=== PATIENT | male | born 1940 | race Caucasian/White ===

== ENCOUNTER 2018-03-03 13:21 | Inpatient (IN) | payer MEDICARE, OTHER ==
[~2018-03-03] VITALS: Ht 188 cm; Wt 110.0 kg
[2018-03-03] MEDS ORDERED: SODIUM CHLORIDE 0.9% 1L BAG IV* STA (13:28)
[2018-03-03] MEDS ORDERED: CEFTRIAXONE 1 GM/50 ML (PMX) 50 ML IVPB ONE (13:30)
[2018-03-03 13:32] VITALS: Ht 188 cm; Wt 110.0 kg
--- NOTE | 2018-03-03 13:52 | ERD ---
ER Documentation Chief Complaint Chief Complaint BIB RA FOR EVAL OF RT LEG REDNESS X 2 DAYS WITH FEVER HPI 77-year-old man complains of 2 days of right lower leg swelling redness and pain. He also complains of fever today, EMS noted a 102.4 F temperature prior to transfer here. Patient denies recent antibiotic use, no recent trauma, no chest pain or shortness of breath, no URI symptoms, no vomiting or diarrhea. ROS All systems reviewed and are negative except as per history of present illness. Medications Home Meds Reported Medications Metformin Hcl* (Metformin Hcl* ER) 500 Mg Tab.sr.24h, 500 MG PO DAILY, #30 TAB 03/03/18 Apixaban* (Eliquis*) Unknown Strength Tablet, PO BID, TAB 03/03/18 Allergies Allergies: Coded Allergies: codeine (Verified Allergy, Unknown, 03/03/18) PMhx/Soc Atrial fibrillation, hypertension FmHx Family History: No diabetes Physical Exam Vitals Vital Signs Date Temp Pulse Resp B/P (MAP) Pulse Ox O2 O2 Flow FiO2 Time Delivery Rate 03/03/18 100.7 93 20 114/63 94 Nasal 14:47 (80) Cannula 03/03/18 102.9 14:19 03/03/18 Nasal 3 13:40 Cannula 03/03/18 102.3 103 16 119/59 99 13:32 (79) Physical Exam Const: No acute distress, febrile Head: Atraumatic Eyes: Normal Conjunctiva ENT: Normal External Ears, Nose and Mouth. Neck: Full range of motion. No meningismus. Resp: Clear to auscultation bilaterally Cardio: Tachycardic and regular Abd: Soft, non tender, non distended. Normal bowel sounds Skin: No petechiae or rashes Back: No midline or flank tenderness Ext: No cyanosis, 3+ pitting edema in the right lower extremity with erythema to the right lower leg and mild tenderness to touch. Neur: Awake and alert x3, no focal deficits or facial asymmetry, gait normal Psych: Normal Mood and Affect Result Diagram: 03/03/18 1349 03/03/18 1349 Results 24 hrs Laboratory Tests Test 03/03/18 13:49 White Blood Count 12.1 10^3/ul Red Blood Count 4.12 10^6/ul Hemoglobin 10.8 g/dl Hematocrit 34.0 % Mean Corpuscular Volume 82.5 fl Mean Corpuscular Hemoglobin 26.2 pg Mean Corpuscular Hemoglobin Concent 31.8 g/dl Red Cell Distribution Width 16.7 % Platelet Count 159 10^3/UL Mean Platelet Volume 11.6 fl Immature Granulocytes % 1.100 % Neutrophils % 90.7 % Lymphocytes % 2.3 % Monocytes % 5.6 % Eosinophils % 0.2 % Basophils % 0.1 % Nucleated Red Blood Cells % 0.0 /100WBC Immature Granulocytes # 0.130 10^3/ul Neutrophils # 11.0 10^3/ul Lymphocytes # 0.3 10^3/ul Monocytes # 0.7 10^3/ul Eosinophils # 0.0 10^3/ul Basophils # 0.0 10^3/ul Nucleated Red Blood Cells # 0.0 10^3/ul Prothrombin Time 19.3 Sec Prothrombin Time Ratio 1.5 INR International Normalized Ratio 1.59 Activated Partial Thromboplast Time 62.1 Sec Sodium Level 138 mmol/L Potassium Level 3.7 mmol/L Chloride Level 99 mmol/L Carbon Dioxide Level 23 mmol/L Anion Gap 16 Blood Urea Nitrogen 23 mg/dl Creatinine 0.80 mg/dl Est Glomerular Filtrat Rate mL/min mL/min Glucose Level 167 mg/dl POC Venous Lactate 3.8 mmol/L Calcium Level 8.8 mg/dl Total Bilirubin 0.8 mg/dl Direct Bilirubin 0.00 mg/dl Indirect Bilirubin 0.8 mg/dl Aspartate Amino Transf (AST/SGOT) 19 IU/L Alanine Aminotransferase (ALT/SGPT) 16 IU/L Alkaline Phosphatase 92 IU/L Troponin I < 0.012 ng/ml Total Protein 6.9 g/dl Albumin 3.7 g/dl Globulin 3.20 g/dl Albumin/Globulin Ratio 1.15 Lipase 23 U/L Current Medications Medications Dose Sig/Scott Start Time Status Last (Trade) Ordered Route PRN Stop Time Admin Dose Reason Admin Sodium 2,000 ml BOLUS OVER 2 03/03/18 DC 03/03/18 Chloride HOURS STAT 13:28 14:10 (NS) IV* 03/03/18 13:30 Ceftriaxone 50 ml @ ONCE ONCE 03/03/18 DC 03/03/18 Sodium 100 mls/hr IVPB 13:30 14:10 03/03/18 13:59 Ibuprofen 600 mg ONCE ONCE 03/03/18 DC 03/03/18 (Motrin) PO 13:30 14:19 03/03/18 13:31 Procedures/MDM IV line was established patient was placed on laboratory monitor rhythm strip revealed a sinus tachycardia at 110 bpm with upright P and T waves. Patient was febrile. Blood and urine cultures have been ordered results are pending I will follow-up. EKG performed, read by me revealed a atrial fibrillation with rapid ventricular rate at 104 bpm, left axis deviation, right ventricular conduction delay QRS duration 104 ms, no concerning ST elevations or depressions noted Chest X-ray 1V Interpreted by me: Soft Tissue: No acute abnormalities Bones: No acute abnormalities Mediastinum/Cardiac Silhouette/Lungs: No acute abnormalities Color Doppler ultrasound of the right lower extremity was performed, all veins compressible, no DVT noted. I administered 2 L normal saline IV, ibuprofen 600 mg p.o., and ceftriaxone 1 g IV for right lower extremity cellulitis. CBC and electrolytes are normal, liver function tests normal, troponin negative, lactic acid elevated at 3.8 Patient's infectious symptoms have not stabilized and the patient is at risk of rapid decompensation. The patient will be admitted for careful hydration, antibiotic therapy, and infectious source control. SEVERE SEPSIS CRITERIA: Infectious source: Right lower extremity cellulitis End organ damage indicated by: No SEPSIS MANAGEMENT Time of recognition of sepsis: Upon arrival. Time of recognition of severe sepsis: No severe sepsis at this time. Time of recognition of septic shock: No septic shock at this time. 3 HOUR BUNDLE Blood cultures x 2 before broad-spectrum antibiotics: Yes 30 ml/kg NS bolus not completed because patient has peripheral edema and I am worried about fluid overload Initial lactate 3.8 Repeat lactate pending SEPTIC SHOCK ASSESSMENT: No lactic acid > 4.0 No persistent hypotension (SBP < 90 or 40 mmHg drop, MAP < 65) despite 30 mL/kg IV fluid bolus VOLUME REASSESSMENT FOR SEPTIC SHOCK: Reevaluation Time: 1500 Temp 99 F BP 140/80, HR 80, RR 16, Pox 100% Heart regular rate & rhythm Lungs no crackles Skin warm & dry Cap Refill less than 2 seconds Peripheral pulses radially present PERSISTENT HYPOTENSION TREATMENT: Comfort care no Central line not Required Vasopressor started not required I considered further perfusion assessment with CVP measurement, SCVO2, bedside ultrasound volume assessment, passive leg raise, trial of further fluid bolus. And proceeded with 30 ml/kg fluid bolus of NSS, broad spectrum antibiotics, and admission. CRITICAL CARE: Critical care time 35 minutes, this was time separate from other billable procedures. Emergent fluid management while maintaining close respiratory support. Provision of immediate and broad-spectrum antibiotic therapy. Simultaneous assessment for possible sources in order to direct targeted therapy. Consideration for invasive and chemical support to prevent cardiopulmonary collapse. Critical care time is independent of procedures performed. Accepting Care Team: Current data and ongoing care discussed. Time: Time of admission Primary Provider: Hospitalist Consulting: Infectious disease Outstanding Data: none Departure Diagnosis: Primary Impression: Sepsis Sepsis type: sepsis due to unspecified organism Qualified Codes: A41.9 - Sepsis, unspecified organism Additional Impression: Cellulitis of right lower extremity Condition: AURORA Moreno MD Mar 03, 2018 13:52
[2018-03-03] MEDS: IBUPROFEN 600 MG TAB PO ONE ×2 (14:11→14:19)
[2018-03-03] MEDS ORDERED: APIX2.5T PO (14:22)
[2018-03-03] MEDS ORDERED: METF500T3 PO (14:22)
[2018-03-03] MEDS ORDERED: HYDROCODONE/APAP (5/325) TAB PO PRN (16:00)
[2018-03-03] MEDS ORDERED: IBUPROFEN 600 MG TAB PO PRN (16:00)
[2018-03-03] MEDS ORDERED: VANCOMYCIN IV PER PHARMACY XX SCH (16:00)
[2018-03-03] MEDS ORDERED: ONDANSETRON 4 MG INJ IV PRN (16:00)
[2018-03-03] MEDS ORDERED: NACL 0.9% 3 ML SYG IV SCH (16:00)
[2018-03-03] MEDS ORDERED: IOHEXOL 300MG/ML 150 ML BTL ONE (16:05)
[2018-03-03] MEDS ORDERED: SOD CHLORIDE 0.9% 100 ML ONE (16:05)
--- NOTE | 2018-03-03 16:06 | HP ---
Date/Time of Note Date/Time of Note DATE: 03/03/18 TIME: 15:52 Assessment/Plan VTE Prophylaxis Pharmacological prophylaxis: other (eliquis) Lines/Catheters IV Catheter Type (from Nrs): Saline Lock Assessment/Plan Assessment/Plan 73 yo man history of NIDDM presents with RLE cellulitis #Severe sepsis #RLE cellulitis - Will get CT leg to r/o NSTI - Duplex negative for DVT. - Ceftriaxone, vanco IV for now - Blood cultures sent - Consult podiatry to posterior foot ulcers. Likely will not need debridement, but just to check. - Ibuprofen, norco prn pain #NIDDM - Insulin sliding scale - Hold home metformin #A fib, chronic - Cont home eliquis - Currently not on anything for rate control; but rate is below 110s even while septic so will hold off. DVT: eliquis GI: None Result Diagram: 03/03/18 1349 03/03/18 1349 HPI/ROS Admit Date/Time Admit Date/Time 03/03/2018 Hx of Present Illness Mr. Padilla is a pleasant 77 yo man with NIDDM who presents with RLE pain and swelling. Symptoms started Thursday morning (2 days [employer]) with subjective fever, headache, and R ankle pain and swelling. He does have two small ulcers on the dorsum of his foot but is not sure when these developed. He developed anorexia, nausea, and had a few episodes of retching but no vomiting. Spent most of Thursday sleeping. The next day symptoms progressively worsened. He took some old oxycodone which did not relieve the pain. He then came in to the ED. In the ED he was febrile to 102.3, tachy to 103, requiring 3L NC. WBC 12.1, lactate 3.8. Admit to med/surg for cellulitis with sepsis. ROS Denies fatigue, weight loss, diaphoresis, vision changes, dysphagia, sore throat, chest pain/pressure/palpitations, cough, dyspnea, orthopnea, abdominal pain, diarrhea, constipation, dysuria, hematuria, urinary frequency. PMH/Family/Social Past Medical History A fib (July 2017) on Eliquis, no rate control NIDDM on metformin History of L shoulder fracture repaired nonoperative History of spine fracture Coded Allergies: codeine (Verified Allergy, Unknown, 03/03/18) Past Surgical History Denies Social History Alcohol Use: occasionally Smoking Status: Former smoker (quit 1984) Drug Use: none Exam/Review of Systems Vital Signs Vitals Vital Signs Date Temp Pulse Resp B/P (MAP) Pulse Ox O2 O2 Flow FiO2 Time Delivery Rate 03/03/18 100.7 93 20 114/63 94 Nasal 14:47 (80) Cannula 03/03/18 3 13:40 Exam Exam Gen: Well appearing elderly man in some discomfort Eyes: PERRL, no icterus HEENT: Clear oropharynx, moist mucous membranes Neck: No lymphadenopathy Card: Tachy, irregularly irregular Pulm: Clear to auscultation bilaterally. Abd: Soft, nontender, nondistended. Ext: RLE 2+ tense edema, patchy erythema, tenderness especially of posterior compartment Skin: Superficial petechiae on RLE. Also two clean-based ulcers on posterior foot. NICOLE BLISS MD Mar 03, 2018 16:04
[2018-03-03] MEDS ORDERED: GLUCAGON 1 MG INJ IM PRN (16:30)
[2018-03-03] MEDS ORDERED: GLUCOSE GEL 15 GRAM TUBE BUCCAL PRN (16:30)
[2018-03-03] MEDS ORDERED: DEXTROSE 50% 50 ML SYRINGE IV PRN ×2 (16:30)
[2018-03-03] MEDS ORDERED: GLUCOSE GEL 15 GRAM TUBE PO PRN ×2 (16:30)
--- NOTE | 2018-03-03 16:41 | NUR ---
Vancomycin per Rx 77 year old male 6' 2" 110 kg Allergy: codeine CC: Cellulitis, sepsis Other antibiotics: Rocephin WBC 12.1 BUN/Scr 23/0.8 A/P: Vancomycin 2 grams IVPB x1 loading dose followed by Vancomycin 1 gram IVPB q12h. Pharmacy to follow.
[2018-03-03] MEDS ORDERED: VANCOMYCIN 2 GM in SOD CHLORIDE 0.9% 500 ML IVPB SCH (17:00)
--- NOTE | 2018-03-03 17:54 | NUR ---
Pt received from ED in stable condition, no acute distress or pain noted, skin check performed, pictures taken,will endorse POC to presales consultant RN
[2018-03-03 18:17] VITALS: BP 95/54; PULSE 97; RESP 18
[2018-03-03 19:53] VITALS: BP 106/61; PULSE 98; RESP 16
--- NOTE | 2018-03-03 20:22 | CONS ---
Date/Time of Note Date/Time of Note DATE: 03/03/18 TIME: 20:17 Assessment/Plan Assessment/Plan Assessment/Plan 1) RLE diabetic foot ulcer 2) RLE cellulitis 3) Edema 4) Leukocytosis 5) DM2 with peripheral neuropathy 6) Onychomycosis 7) callus Plan: Patient was consented for right lower extremity debridement of skin and subcutaneous tissue of the of lower extremity ulcer sites. Less than 20cm2 of area was debrided using scalpel blade. Copious saline irrigation used at wound sites. Wound cultures were obtained, fibrotic tissue and biofilm was removed from the wound sites. Right hallux callus was pared no open wound sites appreciated. CT-scan reviewed. Arterial non-invasive studies ordered. Continue with IV abx per recommendations. Medical decisions, treatment, and plan coordinated with Dr. Weinberg. Result Diagram: 03/03/18 1349 03/03/18 1349 Results 24hrs Laboratory Tests Test 03/03/18 13:49 03/03/18 15:43 03/03/18 18:22 White Blood Count 12.1 H Red Blood Count 4.12 L Hemoglobin 10.8 L Hematocrit 34.0 L Mean Corpuscular Volume 82.5 Mean Corpuscular Hemoglobin 26.2 L Mean Corpuscular 31.8 L Hemoglobin Concent Red Cell Distribution Width 16.7 H Platelet Count 159 Mean Platelet Volume 11.6 H Immature Granulocytes % 1.100 H Neutrophils % 90.7 H Lymphocytes % 2.3 L Monocytes % 5.6 Eosinophils % 0.2 Basophils % 0.1 Nucleated Red Blood Cells % 0.0 Immature Granulocytes # 0.130 H Neutrophils # 11.0 H Lymphocytes # 0.3 L Monocytes # 0.7 Eosinophils # 0.0 Basophils # 0.0 Nucleated Red Blood Cells # 0.0 Prothrombin Time 19.3 H Prothrombin Time Ratio 1.5 INR International 1.59 Normalized Ratio Activated Partial Thromboplast 62.1 H Time Sodium Level 138 Potassium Level 3.7 Chloride Level 99 Carbon Dioxide Level 23 Anion Gap 16 H Blood Urea Nitrogen 23 H Creatinine 0.80 Est Glomerular Filtrat Rate mL/min Glucose Level 167 POC Venous Lactate 3.8 *H 1.9 Calcium Level 8.8 Total Bilirubin 0.8 Direct Bilirubin 0.00 Indirect Bilirubin 0.8 Aspartate Amino 19 Transf (AST/SGOT) Alanine 16 Aminotransferase (ALT/SGPT) Alkaline Phosphatase 92 Troponin I < 0.012 Total Protein 6.9 Albumin 3.7 Globulin 3.20 Albumin/Globulin Ratio 1.15 Lipase 23 Lactic Acid Level 2.3 *H Consultation Date/Type/Reason Admit Date/Time 03/03/2018 Hx of Present Illness 77 y/o diabetic male with hx of a-fib presents to the floor with right lower extremity cellulitis. Patient states that a couple days ago he was experiencing fatigue, fevers, and noted increased redness/swelling to the right lower extremity. Patient stated he had decreased appetite as well. Patient also relates he attempted to cut his own toe nails, accidently cut his own skin and had bled significantly. He also relates that he was wearing tight socks and possible that his right 5th toenail got caught when trying to remove it. Patient states that when standing still the pain to his right lower extremity is worsened and feels like dull throbbing ache. Pain does not radiate towards the proximal aspect of his leg. ROS: negative except HPI Past Medical History A fib (July 2017) on Eliquis, no rate control NIDDM on metformin History of L shoulder fracture repaired nonoperative History of spine fracture Medications Current Medications IV Flush (NS 3 ml) 3 ml PER PROTOCOL IV ; Start 03/03/18 at 16:00 Ondansetron HCl (Zofran Inj) 4 mg Q6H PRN IV NAUSEA AND/OR VOMITING; Start 03/03/18 at 16:00 Ibuprofen (Motrin) 600 mg Q6H PRN PO PAIN; Start 03/03/18 at 16:00 Acetaminophen/ Hydrocodone Bitart ([place] (5/325)) 1 tab Q6H PRN PO BREAKTHROUGH PAIN; Start 03/03/18 at 16:00 Enoxaparin Sodium (Lovenox) 40 mg DAILY SC ; Start 03/04/18 at 09:00 Ceftriaxone Sodium 50 ml @ 100 mls/hr Q24H IVPB ; Start 03/04/18 at 13:00 Vancomycin HCl (Vanco Iv Per Pharmacy) VANCOMYCIN PER PHARMACY PER PROTOCOL XX ; Start 03/03/18 at 16:00 Diagnostic Test (Pha) (Accu-Chek) 1 ea 02 XX ; Start 03/04/18 at 02:00 Insulin Aspart (Novolog Insulin Pen) NOVOLOG *MODERATE* ALGORITHM WITH MEALS BEDTIME SC ; Start 03/03/18 at 21:00 Miscellaneous Information 1 ea NOTE XX ; Start 03/03/18 at 16:30 Glucose (Glutose) 15 gm Q15M PRN PO DECREASED GLUCOSE; Start 03/03/18 at 16:30 Glucose (Glutose) 22.5 gm Q15M PRN PO DECREASED GLUCOSE; Start 03/03/18 at 16:30 Dextrose (D50w Syringe) 25 ml Q15M PRN IV DECREASED GLUCOSE; Start 03/03/18 at 16:30 Dextrose (D50w Syringe) 50 ml Q15M PRN IV DECREASED GLUCOSE; Start 03/03/18 at 16:30 Glucagon (Glucagen) 1 mg Q15M PRN IM DECREASED GLUCOSE; Start 03/03/18 at 16:30 Glucose (Glutose) 15 gm Q15M PRN BUCCAL DECREASED GLUCOSE; Start 03/03/18 at 16:30 Vancomycin HCl 2 gm/Sodium Chloride 500 ml @ 125 mls/hr ONCE IVPB Last administered on 03/03/18at 16:45; Admin Dose 125 MLS/HR; Start 03/03/18 at 17:00; Stop 03/03/18 at 20:59 Vancomycin HCl 250 ml @ 125 mls/hr Q12H IVPB ; Start 03/04/18 at 06:00 Sodium Hypochlorite (Dakin'S (Dilute 140)) 1 applic DAILY IRR ; Start 03/04/18 at 09:00 Allergies: Coded Allergies: codeine (Verified Allergy, Unknown, 03/03/18) Past Surgical History eye surgery lasik Family History Significant Family History: no pertinent family hx Social History Alcohol Use: occasionally Smoking Status: Former smoker (quit 1984) Drug Use: none Exam/Review of Systems Vital Signs Vitals Vital Signs Date Temp Pulse Resp B/P (MAP) Pulse Ox O2 O2 Flow FiO2 Time Delivery Rate 03/03/18 98.8 98 16 106/61 95 19:53 (76) 03/03/18 Room Air 18:17 03/03/18 3.0 18:01 Exam Unable to palpable pedal pulses popliteal pulses palpable Diffuse erythema to tibial region of right lower extremity 2+ pitting edema right lower extremity mycotic toe nails appreciated Right 5th digit with 0.3 x 0.3 x 0.2cm ulceration site with purulence appreciated. There is a loosely adhered 5th digit toe nail. HPK lesion to right distal hallux with no underlying wound Dorsal right foot partial thickness ulcer site 0.2 x 0.2 x 0.1 medial and lateral. Granular in nature, no purulence expressed, no probing to bone Absent protective sensations to the feet Muscle strength is 5/5 in all compartments of the foot. CT lower extremity 1. Circumferential subcutaneous soft tissue edema predominately noted distal to the mid tibial diaphysis and focal areas of soft tissue inflammation along the anterior and anterior medial aspect of the distal tibia and lateral aspect of the distal fibula. There is no deep soft tissue swelling or soft tissue abscess appreciated. 2. No CT evidence of bone destructive process or osteomyelitis. Medications Medications Current Medications IV Flush (NS 3 ml) 3 ml PER PROTOCOL IV ; Start 03/03/18 at 16:00 Ondansetron HCl (Zofran Inj) 4 mg Q6H PRN IV NAUSEA AND/OR VOMITING; Start 03/03/18 at 16:00 Ibuprofen (Motrin) 600 mg Q6H PRN PO PAIN; Start 03/03/18 at 16:00 Acetaminophen/ Hydrocodone Bitart ([place] (5/325)) 1 tab Q6H PRN PO BREAKTHROUGH PAIN; Start 03/03/18 at 16:00 Enoxaparin Sodium (Lovenox) 40 mg DAILY SC ; Start 03/04/18 at 09:00 Ceftriaxone Sodium 50 ml @ 100 mls/hr Q24H IVPB ; Start 03/04/18 at 13:00 Vancomycin HCl (Vanco Iv Per Pharmacy) VANCOMYCIN PER PHARMACY PER PROTOCOL XX ; Start 03/03/18 at 16:00 Diagnostic Test (Pha) (Accu-Chek) 1 ea 02 XX ; Start 03/04/18 at 02:00 Insulin Aspart (Novolog Insulin Pen) NOVOLOG *MODERATE* ALGORITHM WITH MEALS BEDTIME SC ; Start 03/03/18 at 21:00 Miscellaneous Information 1 ea NOTE XX ; Start 03/03/18 at 16:30 Glucose (Glutose) 15 gm Q15M PRN PO DECREASED GLUCOSE; Start 03/03/18 at 16:30 Glucose (Glutose) 22.5 gm Q15M PRN PO DECREASED GLUCOSE; Start 03/03/18 at 16:30 Dextrose (D50w Syringe) 25 ml Q15M PRN IV DECREASED GLUCOSE; Start 03/03/18 at 16:30 Dextrose (D50w Syringe) 50 ml Q15M PRN IV DECREASED GLUCOSE; Start 03/03/18 at 16:30 Glucagon (Glucagen) 1 mg Q15M PRN IM DECREASED GLUCOSE; Start 03/03/18 at 16:30 Glucose (Glutose) 15 gm Q15M PRN BUCCAL DECREASED GLUCOSE; Start 03/03/18 at 16:30 Vancomycin HCl 2 gm/Sodium Chloride 500 ml @ 125 mls/hr ONCE IVPB Last administered on 03/03/18at 16:45; Admin Dose 125 MLS/HR; Start 03/03/18 at 17:00; Stop 03/03/18 at 20:59 Vancomycin HCl 250 ml @ 125 mls/hr Q12H IVPB ; Start 03/04/18 at 06:00 Sodium Hypochlorite (Dakin'S (Dilute )) 1 applic DAILY IRR ; Start 03/04/18 at 09:00 IGNACIO RIVERA DPM Mar 03, 2018 20:22
[2018-03-03] MEDS: INSULIN ASPART [NOVOLOG] 3 ML PEN SC SCH (21:00)
--- NOTE | 2018-03-04 00:21 | NUR ---
Late entry 2030: Seen by Dr. Miles and did right lower extremity debridement at bedside, patient signed consent. Noted right lower extremity with fadia wrap bandage applied, patient denies any unbearable discomfort/pain. Right lower extremity with redness and swelling noted, right foot anterior aspect with open wound noted prior to debridement. Right leg elevated.
[2018-03-04 01:42] VITALS: BP 114/65; PULSE 100; RESP 18
[2018-03-04] MEDS: ACCU-CHEK XX SCH (02:00)
[2018-03-04] MEDS: VANCOMYCIN 1 GM 250 ML IVPB SCH ×2 (05:45→18:08)
--- NOTE | 2018-03-04 06:48 | NUR ---
No event overnight. Right Lower extremity dressing intact/dry with small size of blood stain can be noted in the forefoot area of the dressing. Denies any unbearable discomfort. Continue on IV antibiotic medication as ordered infusing well. Fall risks precaution observed, all needs attended to promptly. Ira signs stable.
[2018-03-04 07:39] VITALS: BP 112/57; PULSE 103; RESP 16
[2018-03-04] MEDS: INSULIN ASPART [NOVOLOG] 3 ML PEN SC SCH ×4 (09:27→21:00)
[2018-03-04] MEDS: ENOXAPARIN 40 MG/0.4 ML SYG SC SCH (09:28)
[2018-03-04] MEDS: SODIUM HYPOCHLORITE (1/40) 1 APPLIC BTL IRR SCH (09:38)
--- NOTE | 2018-03-04 12:23 | PN ---
Date/Time of Note Date/Time of Note DATE: 03/04/18 TIME: 12:21 Assessment/Plan VTE Prophylaxis Risk score (from Nsg)>0 risk: 5 SCD applied (from Nsg): Yes Pharmacological prophylaxis: LMWH Lines/Catheters IV Catheter Type (from Nrsg): [place] Assessment/Plan Assessment/Plan 73 yo man history of NIDDM presents with RLE cellulitis #Severe sepsis #RLE cellulitis - CT leg negative for deep edema or subQ gas. - Duplex negative for DVT. - Ceftriaxone, vanco IV for now - Blood cultures sent - Podiatry debrided on 03/03, will followup wound cultures. - Ibuprofen, norco prn pain #NIDDM - Insulin sliding scale - Hold home metformin #A fib, chronic - Cont home eliquis - Currently not on anything for rate control; but rate is below 110s even while septic so will hold off. DVT: eliquis GI: None Result Diagram: 03/04/18 0446 03/04/18 0446 Results 24hrs Laboratory Tests Test 03/03/18 13:49 03/03/18 15:43 03/03/18 18:22 03/03/18 21:17 White Blood 12.1 H Count Red Blood Count 4.12 L Hemoglobin 10.8 L Hematocrit 34.0 L Mean Corpuscular 82.5 Volume Mean Corpuscular 26.2 L Hemoglobin Mean Corpuscular 31.8 L Hemoglobin Dulce nt Red Cell 16.7 H Distribution Width Platelet Count 159 Mean Platelet 11.6 H Volume Immature 1.100 H Granulocytes % Neutrophils % 90.7 H Lymphocytes % 2.3 L Monocytes % 5.6 Eosinophils % 0.2 Basophils % 0.1 Nucleated Red 0.0 Blood Cells % Immature 0.130 H Granulocytes # Neutrophils # 11.0 H Lymphocytes # 0.3 L Monocytes # 0.7 Eosinophils # 0.0 Basophils # 0.0 Nucleated Red 0.0 Blood Cells # Prothrombin Time 19.3 H Prothrombin Time 1.5 Ratio INR 1.59 International Normalized Ratio Activated 62.1 H Partial Thrombop last Time Sodium Level 138 Potassium Level 3.7 Chloride Level 99 Carbon Dioxide 23 Level Anion Gap 16 H Blood Urea 23 H Nitrogen Creatinine 0.80 Est Glomerular Filtrat Rate mL/min Glucose Level 167 POC Venous 3.8 *H 1.9 Lactate Calcium Level 8.8 Total Bilirubin 0.8 Direct Bilirubin 0.00 Indirect 0.8 Bilirubin Aspartate Amino 19 Transf (AST/SGOT ) Alanine 16 Aminotransferase (ALT/SGPT) Alkaline 92 Phosphatase Troponin I < 0.012 Total Protein 6.9 Albumin 3.7 Globulin 3.20 Albumin/Globulin 1.15 Ratio Lipase 23 Lactic Acid 2.3 *H Level Bedside Glucose 174 Test 03/04/18 00:31 03/04/18 04:46 03/04/18 08:21 03/04/18 09:25 Lactic Acid 1.6 Level White Blood 11.4 H Count Red Blood Count 3.75 L Hemoglobin 9.7 L Hematocrit 31.0 L Mean Corpuscular 82.7 Volume Mean Corpuscular 25.9 L Hemoglobin Mean Corpuscular 31.3 L Hemoglobin Dulce nt Red Cell 16.8 H Distribution Width Platelet Count 131 L Mean Platelet 11.4 H Volume Immature 1.000 H Granulocytes % Neutrophils % 88.9 H Lymphocytes % 2.6 L Monocytes % 7.1 Eosinophils % 0.3 Basophils % 0.1 Nucleated Red 0.0 Blood Cells % Immature 0.110 H Granulocytes # Neutrophils # 10.1 H Lymphocytes # 0.3 L Monocytes # 0.8 Eosinophils # 0.0 Basophils # 0.0 Nucleated Red 0.0 Blood Cells # Sodium Level 139 Potassium Level 3.5 Chloride Level 101 Carbon Dioxide 25 Level Anion Gap 13 Blood Urea 20 Nitrogen Creatinine 0.68 Est Glomerular Filtrat Rate mL/min Glucose Level 168 Hemoglobin A1c 6.9 H Calcium Level 8.5 Phosphorus Level 3.3 Magnesium Level 2.0 Total Bilirubin 0.6 Direct Bilirubin 0.00 Indirect 0.6 Bilirubin Aspartate Amino 15 Transf (AST/SGOT ) Alanine 16 Aminotransferase (ALT/SGPT) Alkaline 79 Phosphatase Total Protein 6.1 Albumin 3.3 Globulin 2.80 Albumin/Globulin 1.17 Ratio Triglycerides 72 Level Cholesterol 93 L Level LDL Cholesterol, 51 Calculated HDL Cholesterol 28 L Cholesterol/HDL 3.3 Ratio Thyroid 1.900 Stimulating Hormone (TSH) Bedside Glucose 184 158 Subjective 24 Hr Interval Summary Free Text/Dictation No acute overnight events. Patient reports fatigue and anorexia. Got debrided by Dr. Miles last night. Exam/Review of Systems Vital Signs Vitals Vital Signs Date Temp Pulse Resp B/P (MAP) Pulse Ox O2 O2 Flow FiO2 Time Delivery Rate 03/04/18 98.6 103 16 112/57 95 07:39 (75) 03/03/18 Room Air 18:17 03/03/18 3.0 18:01 Intake and Output 03/03/18 03/03/18 03/04/18 1515:00 23:00 07:00 OutputOutput Total 1000 ml BalanceBalance -1000 ml Exam Gen: Well appearing elderly man in no acute distress Eyes: PERRL, no icterus HEENT: Clear oropharynx, moist mucous membranes Neck: No lymphadenopathy Card: irregularly irregular Pulm: Clear to auscultation bilaterally. Abd: Soft, nontender, nondistended. Ext: RLE 2+ tense edema, patchy erythema, tenderness especially of posterior compartment. Limb is bandaged. Skin: Superficial petechiae on RLE. Medications Medications Current Medications IV Flush (NS 3 ml) 3 ml PER PROTOCOL IV ; Start 03/03/18 at 16:00 Ondansetron HCl (Zofran Inj) 4 mg Q6H PRN IV NAUSEA AND/OR VOMITING; Start 03/03/18 at 16:00 Ibuprofen (Motrin) 600 mg Q6H PRN PO PAIN; Start 03/03/18 at 16:00 Acetaminophen/ Hydrocodone Bitart ([place] (5/325)) 1 tab Q6H PRN PO BREAKTHROUGH PAIN; Start 03/03/18 at 16:00 Enoxaparin Sodium (Lovenox) 40 mg DAILY SC Last administered on 03/04/18at 09:28; Admin Dose 40 MG; Start 03/04/18 at 09:00 Ceftriaxone Sodium 50 ml @ 100 mls/hr Q24H IVPB ; Start 03/04/18 at 13:00 Vancomycin HCl (Vanco Iv Per Pharmacy) VANCOMYCIN PER PHARMACY PER PROTOCOL XX ; Start 03/03/18 at 16:00 Diagnostic Test (Pha) (Accu-Chek) 1 ea 02 XX ; Start 03/04/18 at 02:00 Insulin Aspart (Novolog Insulin Pen) NOVOLOG *MODERATE* ALGORITHM WITH MEALS BEDTIME SC Last administered on 03/04/18at 09:27; Admin Dose 2 UNIT; Start 03/03/18 at 21:00 Miscellaneous Information 1 ea NOTE XX ; Start 03/03/18 at 16:30 Glucose (Glutose) 15 gm Q15M PRN PO DECREASED GLUCOSE; Start 03/03/18 at 16:30 Glucose (Glutose) 22.5 gm Q15M PRN PO DECREASED GLUCOSE; Start 03/03/18 at 16:30 Dextrose (D50w Syringe) 25 ml Q15M PRN IV DECREASED GLUCOSE; Start 03/03/18 at 16:30 Dextrose (D50w Syringe) 50 ml Q15M PRN IV DECREASED GLUCOSE; Start 03/03/18 at 16:30 Glucagon (Glucagen) 1 mg Q15M PRN IM DECREASED GLUCOSE; Start 03/03/18 at 16:30 Glucose (Glutose) 15 gm Q15M PRN BUCCAL DECREASED GLUCOSE; Start 03/03/18 at 16:30 Vancomycin HCl 250 ml @ 125 mls/hr Q12H IVPB Last administered on 03/04/18at 05:45; Admin Dose 125 MLS/HR; Start 03/04/18 at 06:00 Sodium Hypochlorite (Dakin'S (Dilute )) 1 applic DAILY IRR Last administered on 03/04/18at 09:38; Admin Dose 1 APPLIC; Start 03/04/18 at 09:00 Miscellaneous Information (*Rx Drug Level Order Reminder*) VANCOMYCIN TROUGH AT 0500 ONCE ONCE XX ; Start 03/05/18 at 05:00; Stop 03/05/18 at 05:01 NICOLE BLISS MD Mar 04, 2018 12:23
[2018-03-04] MEDS: CEFTRIAXONE 1 GM/50 ML (PMX) 50 ML IVPB SCH (13:20)
[2018-03-04 15:48] VITALS: BP 128/76; PULSE 109; RESP 16
--- NOTE | 2018-03-04 19:03 | NUR ---
END OF SHIFT Patient alert no acute distress. Patient complain on right leg bu patient refused any pain medication at this time. Explained risk and benefits. still refused. Wound dressing done. Needs attended. Will continue to monitor.
[2018-03-04 19:43] VITALS: BP 107/57; PULSE 100; RESP 18
[2018-03-05] MEDS: ACCU-CHEK XX SCH (02:00)
[2018-03-05 02:27] VITALS: BP 114/62; PULSE 97; RESP 18
--- NOTE | 2018-03-05 05:28 | NUR ---
No change in condition. Slept well during on during the night, remain comfortable. Right lower extremity dressing intact clean/dry, denies need for pain medication. Continue on IV antibiotic medications as ordered with no adverse reaction noted. Fall risks precautions observed, all needs attended to promptly. Vital signs stable, no s/s of hypo/hyperglycemia.
--- NOTE | 2018-03-05 06:35 | PQ ---
Date/Time of Note Date/Time of Note DATE: 03/05/18 TIME: 06:[address] Miles , A review of the medical record found a need for documentation clarification. "right lower extremity debridement of skin and subcutaneous tissue of the of lower extremity ulcer sites. Less than 20cm2 of area was debrided using scalpel blade." done on 03/03 pleasure further specify type of debridement done. Thank you Please clarify a diagnosis being treated. To facilitate accurate and complete coding, please maria elena ( x ) the suspected diagnosis that apply: ( ) Excisional Debridement ( ) Non Excisional Debridement ( ) Other Please provide your response by clicking edit document, make your choice (x ), click ok/save and finally click sign. You may also document your response in your progress notes. Thank you for your time. Tori GARSIABS,CCS,CCDS Clinical Corporate Librarian Health Information Management, CDI and Coding Services Room # [id number] - Coding [address] [address] TORI PRABHAKAR Mar 05, 2018 06:35
[2018-03-05] MEDS: VANCOMYCIN 1 GM 250 ML IVPB SCH ×3 (07:04→23:15)
[2018-03-05 07:37] VITALS: BP 116/61; PULSE 69; RESP 20
[2018-03-05] MEDS: INSULIN ASPART [NOVOLOG] 3 ML PEN SC SCH ×4 (08:25→20:32)
[2018-03-05] MEDS: ENOXAPARIN 40 MG/0.4 ML SYG SC SCH (08:26)
[2018-03-05] MEDS: SODIUM HYPOCHLORITE (1/40) 1 APPLIC BTL IRR SCH (08:27)
--- NOTE | 2018-03-05 09:43 | NUR ---
PT EVAL Therapy day number 1 Evaluation Start Time 08:40 Evaluation Total Time 0 min Subjective Current complaint of pain Pain Scale NUMERIC Pain Intensity 1 (0-10) Patient Stated Goal for Pain Relief 0 (0-10) Pain Level Comment R leg [place] tightness Pre Treatment Vital Signs Stable Yes Exercise Assessment Label Bilat Lower Extremity Exercise Type Active ROM Additional Exercise Comments L APs; B knee flexion, SLR Supine to Sit Stand by Assist Transfer Sit to Stand Ability Contact Guard Assist Bed Mobility Sit to Supine Stand by Assist Bed Transfer Ability Minimum Assist Chair Transfer Ability Minimum Assist Sitting Tolerance 20 min Patient uses wheelchair Not Applicable Gait Assist Levels Contact Guard Assist Assistive Devices Front Wheel Walker Ambulation Distance 60 feet Additional Gait Comments step-to initially progressing to step-through, antalgic, increased UE suppo Weight Bearing Assessment Label Bilat Lower Extremity Weight Bearing Status Weight Bearing as Vane Static Sitting Balance Good Dynamic Sitting Balance Good Standing Static Balance Fair plus Dynamic Standing Balance Fair plus Additional Balance Assessments Comments with FWW Safety Judgement Good Activity Tolerance Good Equipment Present A pump IV pump Post Treatment Pain Intensity 5 0-10 Variance Documentation SEE PT EVAL PT Technical Record Comment PT EVAL Pt is a 77 yo M with PMH of NIDDM, Afib, who presented to [facility] with R LE pain/swelling. CT of R LE (-) for deep edema/ subcutaneous gas; R LE (-) for DVT. Pt S/P R LE debridement on 03/03/18. Pt received in 2NE, med/surg. Precautions: WBAT B LE PLOF: Pt lives alone in 1st floor condo with 1 threshold/step to enter. Ambulatory without AD, though pt owns a SPC. CLOF: YOLIE Riggs cleared pt for PT evaluation. Pt received in bed, vitals assesed and stable, agreeable to PT evaluation, educated on purpose of PT eval. Noted with ROM testing, L UE shoulder ROM limited (~70 flexion) due to h/o fx in past. Bed mobility, transfer, and gait assessment as described above. Pt returned to bed, all needs in reach, bed alarm activated. RN notified of pt's status. Recommendation: Pt demonstrates antalgic gait with use of FWW, reporting increased R LE pain in weight bearing which improved with increasing UE suppport with walker. Able to amb 60', mobility at SBA-CGA level. Pt will benefit from additional skilled PT during hospital stay for further gait normalization and to improve overall strength. D/C recommendation home once cleared by MD, pt reports he may be able to stay with girlfriend who will assist pt. PT WILL NEED FWW. Recommend use of R surgical shoe c amb due to R LE swelling/dressings. Plan: Continue c PT POC
--- NOTE | 2018-03-05 10:08 | NUR ---
Vancomycin per Rx Vancomycin trough = 6.4 SCr 0.68 Increase Vancomycin to 1gm IV q8h Recheck Vancomycin trough level at steady state
[2018-03-05] MEDS: CEFTRIAXONE 1 GM/50 ML (PMX) 50 ML IVPB SCH (13:00)
--- NOTE | 2018-03-05 14:03 | NUR ---
ZONIA NOTE: FWW AND SURGICAL SHOE Received order for FWW and Surgical Shoe. S/W pt at bedside who reports that he does not have a FWW. Order faxed to [facility] ([phone], F:[phone]). Confirmation received. Informed YOLIE Riggs that surgical shoe should be ordered from distribution. Clement Hood RN CM [id number] Addendum: 03/08/18 at 1012 by FAWAD HOOD CM Called [facility] to f/u with FWW delivery. S/W Galilea who states that the walker will be delivered today to pt bedside. Intake #[id number]. Addendum: 03/09/18 at 1322 by FAWAD HOOD CM Received call from [facility] (P:[phone], F:[phone]) who states that they need a physical RX for the FWW faxed. Also requiring that the RX be faxed to [facility] ([phone]). RX faxed. Confirmation received.
--- NOTE | 2018-03-05 15:06 | PN ---
Date/Time of Note Date/Time of Note DATE: 03/05/18 TIME: 15:01 Assessment/Plan VTE Prophylaxis Risk score (from Nsg)>0 risk: 6 SCD applied (from Nsg): Yes Pharmacological prophylaxis: LMWH Lines/Catheters IV Catheter Type (from Nrsg): Peripheral IV Assessment/Plan Assessment/Plan 73 yo man history of NIDDM presents with RLE cellulitis #Severe sepsis #RLE cellulitis - CT leg negative for deep edema or subQ gas. - Duplex negative for DVT. - Ceftriaxone, vanco IV for now - Blood cultures sent - Podiatry debrided on 03/03, will followup wound culture final sensitivity - Ibuprofen, norco prn pain #NIDDM - Insulin sliding scale - Will add glargine today - Hold home metformin #A fib, chronic - Cont home eliquis - Currently not on anything for rate control DVT: eliquis GI: None Result Diagram: 03/05/18 1035 03/05/18 1035 Results 24hrs Laboratory Tests Test 03/04/18 15:39 03/04/18 17:49 03/04/18 21:07 03/05/18 05:43 Erythrocyte 55 H Sedimentation Rate C-Reactive 40.9 H Protein Bedside Glucose 165 164 Vancomycin Level 6.4 L Trough Test 03/05/18 08:21 03/05/18 10:35 03/05/18 12:45 Bedside Glucose 158 237 H White Blood 8.3 # Count Red Blood Count 3.81 L Hemoglobin 10.1 L Hematocrit 31.5 L Mean Corpuscular 82.7 Volume Mean Corpuscular 26.5 L Hemoglobin Mean Corpuscular 32.1 Hemoglobin Dulce nt Red Cell 16.4 H Distribution Width Platelet Count 135 L Mean Platelet 12.1 H Volume Immature 0.600 H Granulocytes % Neutrophils % 85.0 H Lymphocytes % 8.0 L Monocytes % 5.8 Eosinophils % 0.5 Basophils % 0.1 Nucleated Red 0.0 Blood Cells % Immature 0.050 H Granulocytes # Neutrophils # 7.1 Lymphocytes # 0.7 L Monocytes # 0.5 Eosinophils # 0.0 Basophils # 0.0 Nucleated Red 0.0 Blood Cells # Erythrocyte 56 H Sedimentation Rate Sodium Level 137 Potassium Level 3.4 L Chloride Level 101 Carbon Dioxide 28 Level Anion Gap 8 Blood Urea 19 Nitrogen Creatinine 0.70 Est Glomerular Filtrat Rate mL/min Glucose Level 203 Calcium Level 8.3 L C-Reactive 26.1 H Protein Subjective 24 Hr Interval Summary Free Text/Dictation No acute overnight events. Worked a bit with physical therapy today, but still unable to ambulate to bathroom due to pain. Exam/Review of Systems Vital Signs Vitals Vital Signs Date Temp Pulse Resp B/P (MAP) Pulse Ox O2 O2 Flow FiO2 Time Delivery Rate 03/05/18 99.3 69 20 116/61 90 07:37 (79) 03/03/18 Room Air 18:17 03/03/18 3.0 18:01 Intake and Output 03/04/18 03/04/18 03/05/18 1515:00 23:00 07:00 IntakeIntake Total 1240 ml 250 ml 960 ml OutputOutput Total 600 ml 700 ml BalanceBalance 640 ml 250 ml 260 ml Exam Gen: Well appearing elderly man in no acute distress Eyes: PERRL, no icterus HEENT: Clear oropharynx, moist mucous membranes Neck: No lymphadenopathy Card: irregularly irregular Pulm: Clear to auscultation bilaterally. Abd: Soft, nontender, nondistended. Ext: RLE 2+ tense edema, patchy erythema, tenderness especially of posterior compartment. Limb is bandaged. Skin: Superficial petechiae on RLE. Medications Medications Current Medications IV Flush (NS 3 ml) 3 ml PER PROTOCOL IV ; Start 03/03/18 at 16:00 Ondansetron HCl (Zofran Inj) 4 mg Q6H PRN IV NAUSEA AND/OR VOMITING; Start 03/03/18 at 16:00 Ibuprofen (Motrin) 600 mg Q6H PRN PO PAIN; Start 03/03/18 at 16:00 Acetaminophen/ Hydrocodone Bitart ([place] (5/325)) 1 tab Q6H PRN PO BREAKTHROUGH PAIN Last administered on 03/05/18at 07:16; Admin Dose 1 TAB; Start 03/03/18 at 16:00 Enoxaparin Sodium (Lovenox) 40 mg DAILY SC Last administered on 03/05/18at 08:26; Admin Dose 40 MG; Start 03/04/18 at 09:00 Ceftriaxone Sodium 50 ml @ 100 mls/hr Q24H IVPB Last administered on 03/05/18at 13:00; Admin Dose 100 MLS/HR; Start 03/04/18 at 13:00 Vancomycin HCl (Vanco Iv Per Pharmacy) VANCOMYCIN PER PHARMACY PER PROTOCOL XX ; Start 03/03/18 at 16:00 Diagnostic Test (Pha) (Accu-Chek) 1 ea 02 XX ; Start 03/04/18 at 02:00 Insulin Aspart (Novolog Insulin Pen) NOVOLOG *MODERATE* ALGORITHM WITH MEALS BEDTIME SC Last administered on 03/05/18at 12:48; Admin Dose 6 UNIT; Start 03/03/18 at 21:00 Miscellaneous Information 1 ea NOTE XX ; Start 03/03/18 at 16:30 Glucose (Glutose) 15 gm Q15M PRN PO DECREASED GLUCOSE; Start 03/03/18 at 16:30 Glucose (Glutose) 22.5 gm Q15M PRN PO DECREASED GLUCOSE; Start 03/03/18 at 16:30 Dextrose (D50w Syringe) 25 ml Q15M PRN IV DECREASED GLUCOSE; Start 03/03/18 at 16:30 Dextrose (D50w Syringe) 50 ml Q15M PRN IV DECREASED GLUCOSE; Start 03/03/18 at 16:30 Glucagon (Glucagen) 1 mg Q15M PRN IM DECREASED GLUCOSE; Start 03/03/18 at 16:30 Glucose (Glutose) 15 gm Q15M PRN BUCCAL DECREASED GLUCOSE; Start 03/03/18 at 16:30 Sodium Hypochlorite (Dakin'S (Dilute 140)) 1 applic DAILY IRR Last administered on 03/05/18at 08:27; Admin Dose 1 APPLIC; Start 03/04/18 at 09:00 Vancomycin HCl 250 ml @ 125 mls/hr Q8H IVPB Last administered on 03/05/18at 07:04; Admin Dose 125 MLS/HR; Start 03/05/18 at 07:00 Miscellaneous Information (*Rx Drug Level Order Reminder*) VANCOMYCIN TROUGH AT 1400 ONCE ONCE XX ; Start 03/06/18 at 14:00; Stop 03/06/18 at 14:01 NICOLE BLISS MD Mar 05, 2018 15:06
[2018-03-05 16:19] VITALS: BP 107/58; PULSE 78; RESP 18
--- NOTE | 2018-03-05 16:56 | PN ---
Date/Time of Note Date/Time of Note DATE: 03/05/18 TIME: 16:56 Assessment/Plan VTE Prophylaxis Risk score (from Nsg)>0 risk: 6 SCD applied (from Nsg): Yes Pharmacological prophylaxis: heparin Lines/Catheters IV Catheter Type (from Nrsg): Peripheral IV Assessment/Plan Hospital Course 77 y/o diabetic male with hx of a-fib presents to the floor with right lower extremity cellulitis. Patient states that a couple days ago he was experiencing fatigue, fevers, and noted increased redness/swelling to the right lower extremity. Patient stated he had decreased appetite as well. Patient also relates he attempted to cut his own toe nails, accidently cut his own skin and had bled significantly. He also relates that he was wearing tight socks and possible that his right 5th toenail got caught when trying to remove it. Patient states that when standing still the pain to his right lower extremity is worsened and feels like dull throbbing ache. Pain does not radiate towards the proximal aspect of his leg. Assessment/Plan 1) RLE diabetic foot ulcer - improved 2) RLE cellulitis 3) Edema 4) Leukocytosis - resolved 5) DM2 with peripheral neuropathy 6) Onychomycosis 7) callus Plan: Continue with daily dressing changes with compression wraps. 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 Recommend vascular consult as the non invasive arterial studies are showing infrapopliteal disease. Continue with IV abx per recommendations. Medical decisions, treatment, and plan coordinated with Dr. Weinberg. Result Diagram: 03/05/18 1035 03/05/18 1035 Results 24hrs Laboratory Tests Test 03/04/18 17:49 03/04/18 21:07 03/05/18 05:43 03/05/18 08:21 Bedside Glucose 165 164 158 Vancomycin Level 6.4 L Trough Test 03/05/18 10:35 03/05/18 12:45 White Blood 8.3 # Count Red Blood Count 3.81 L Hemoglobin 10.1 L Hematocrit 31.5 L Mean Corpuscular 82.7 Volume Mean Corpuscular 26.5 L Hemoglobin Mean Corpuscular 32.1 Hemoglobin Dulce nt Red Cell 16.4 H Distribution Width Platelet Count 135 L Mean Platelet 12.1 H Volume Immature 0.600 H Granulocytes % Neutrophils % 85.0 H Lymphocytes % 8.0 L Monocytes % 5.8 Eosinophils % 0.5 Basophils % 0.1 Nucleated Red 0.0 Blood Cells % Immature 0.050 H Granulocytes # Neutrophils # 7.1 Lymphocytes # 0.7 L Monocytes # 0.5 Eosinophils # 0.0 Basophils # 0.0 Nucleated Red 0.0 Blood Cells # Erythrocyte 56 H Sedimentation Rate Sodium Level 137 Potassium Level 3.4 L Chloride Level 101 Carbon Dioxide 28 Level Anion Gap 8 Blood Urea 19 Nitrogen Creatinine 0.70 Est Glomerular Filtrat Rate mL/min Glucose Level 203 Calcium Level 8.3 L C-Reactive 26.1 H Protein Bedside Glucose 237 H Subjective 24 Hr Interval Summary Free Text/Dictation No acute events overnight. Exam/Review of Systems Vital Signs Vitals Vital Signs Date Temp Pulse Resp B/P (MAP) Pulse Ox O2 O2 Flow FiO2 Time Delivery Rate 03/05/18 99.0 78 18 107/58 95 16:19 (74) 03/03/18 Room Air 18:17 03/03/18 3.0 18:01 Intake and Output 03/04/18 03/04/18 03/05/18 1515:00 23:00 07:00 IntakeIntake Total 1240 ml 250 ml 960 ml OutputOutput Total 600 ml 700 ml BalanceBalance 640 ml 250 ml 260 ml Exam Unable to palpable pedal pulses popliteal pulses palpable Diffuse erythema to tibial region of right lower extremity 2+ pitting edema right lower extremity mycotic toe nails appreciated Right 5th digit with 0.3 x 0.3 x 0.2cm ulceration site with purulence appreciated. There is a loosely adhered 5th digit toe nail. HPK lesion to right distal hallux with no underlying wound Dorsal right foot partial thickness ulcer site 0.2 x 0.2 x 0.1 medial and lateral. Granular in nature, no purulence expressed, no probing to bone Absent protective sensations to the feet Muscle strength is 5/5 in all compartments of the foot. CT lower extremity 1. Circumferential subcutaneous soft tissue edema predominately noted distal to the mid tibial diaphysis and focal areas of soft tissue inflammation along the anterior and anterior medial aspect of the distal tibia and lateral aspect of the distal fibula. There is no deep soft tissue swelling or soft tissue abscess appreciated. 2. No CT evidence of bone destructive process or osteomyelitis. Medications Medications Current Medications IV Flush (NS 3 ml) 3 ml PER PROTOCOL IV ; Start 03/03/18 at 16:00 Ondansetron HCl (Zofran Inj) 4 mg Q6H PRN IV NAUSEA AND/OR VOMITING; Start 03/03/18 at 16:00 Ibuprofen (Motrin) 600 mg Q6H PRN PO PAIN; Start 03/03/18 at 16:00 Acetaminophen/ Hydrocodone Bitart ([place] (5/325)) 1 tab Q6H PRN PO BREAKTHROUGH PAIN Last administered on 03/05/18at 07:16; Admin Dose 1 TAB; Start 03/03/18 at 16:00 Enoxaparin Sodium (Lovenox) 40 mg DAILY SC Last administered on 03/05/18at 08:26; Admin Dose 40 MG; Start 03/04/18 at 09:00 Ceftriaxone Sodium 50 ml @ 100 mls/hr Q24H IVPB Last administered on 03/05/18at 13:00; Admin Dose 100 MLS/HR; Start 03/04/18 at 13:00 Vancomycin HCl (Vanco Iv Per Pharmacy) VANCOMYCIN PER PHARMACY PER PROTOCOL XX ; Start 03/03/18 at 16:00 Diagnostic Test (Pha) (Accu-Chek) 1 ea 02 XX ; Start 03/04/18 at 02:00 Insulin Aspart (Novolog Insulin Pen) NOVOLOG *MODERATE* ALGORITHM WITH MEALS BEDTIME SC Last administered on 03/05/18at 12:48; Admin Dose 6 UNIT; Start 03/03/18 at 21:00 Miscellaneous Information 1 ea NOTE XX ; Start 03/03/18 at 16:30 Glucose (Glutose) 15 gm Q15M PRN PO DECREASED GLUCOSE; Start 03/03/18 at 16:30 Glucose (Glutose) 22.5 gm Q15M PRN PO DECREASED GLUCOSE; Start 03/03/18 at 16:30 Dextrose (D50w Syringe) 25 ml Q15M PRN IV DECREASED GLUCOSE; Start 03/03/18 at 16:30 Dextrose (D50w Syringe) 50 ml Q15M PRN IV DECREASED GLUCOSE; Start 03/03/18 at 16:30 Glucagon (Glucagen) 1 mg Q15M PRN IM DECREASED GLUCOSE; Start 03/03/18 at 16:30 Glucose (Glutose) 15 gm Q15M PRN BUCCAL DECREASED GLUCOSE; Start 03/03/18 at 16:30 Sodium Hypochlorite (Dakin'S (Dilute 1/40)) 1 applic DAILY IRR Last administered on 03/05/18at 08:27; Admin Dose 1 APPLIC; Start 03/04/18 at 09:00 Vancomycin HCl 250 ml @ 125 mls/hr Q8H IVPB Last administered on 03/05/18at 15 :42; Admin Dose 125 MLS/HR; Start 03/05/18 at 07:00 Miscellaneous Information (*Rx Drug Level Order Reminder*) VANCOMYCIN TROUGH AT 1400 ONCE ONCE XX ; Start 03/06/18 at 14:00; Stop 03/06/18 at 14:01 Insulin Glargine (Lantus) 12 units DAILY@2000 SC ; Start 03/05/18 at 20:00 IGNACIO RIVERA DPM Mar 05, 2018 16:56
--- NOTE | 2018-03-05 18:16 | NUR ---
END OF SHIFT Patient alert, no acute distress. Due medications done. Needs attended. Hourly rounding. Wound dressing done. Will continue to monitor.
[2018-03-05 20:02] VITALS: BP 108/60; PULSE 95; RESP 18
[2018-03-05] MEDS: INSULIN GLARGINE [LANTus] (100 UNITS/ML) SYG SC SCH (20:32)
[2018-03-05] MEDS ORDERED: POTASSIUM CHLORIDE (SR) 20 MEQ TAB PO STA (20:33)
[2018-03-06 01:59] VITALS: BP 111/68; PULSE 87; RESP 18
[2018-03-06] MEDS: ACCU-CHEK XX SCH (01:59)
--- NOTE | 2018-03-06 04:12 | NUR ---
PT ALERT AND ORIENTED.VS STABLE. WITH TOLERABLE PAIN OVER AFFECTED RIGHT LEG. DAILY DRESSING DONE BY AM RN,DRY AND INTACT. LOW K LEVEL REPLACED ORDERED. PT TOLERATED DOSE OF LANTUS GIVEN. PROVIDED ASSISTANCE. CALL LIGHT WITHIN REACH.
[2018-03-06] MEDS: VANCOMYCIN 1 GM 250 ML IVPB SCH ×3 (06:25→22:43)
[2018-03-06 07:32] VITALS: BP 111/66; PULSE 82; RESP 17
[2018-03-06] MEDS: SODIUM HYPOCHLORITE (1/40) 1 APPLIC BTL IRR SCH (08:14)
[2018-03-06] MEDS: INSULIN ASPART [NOVOLOG] 3 ML PEN SC SCH ×4 (08:21→21:00)
[2018-03-06] MEDS: ENOXAPARIN 40 MG/0.4 ML SYG SC SCH (08:21)
--- NOTE | 2018-03-06 11:55 | NUR ---
PT NOTE [facility] Patient: Pavan Padilla : 1940 Age/Sex: 77/M Unit#: [id number] Room/Bed: 2272/A User: Keena Mujica PTA Date: 03/06/18 11:30 Type: PT Technical Record Therapy day number 2 Subjective Current complaint of pain Pain Scale NUMERIC Pain Intensity 2 (0-10) Patient Stated Goal for Pain Relief 0 (0-10) Pain Level Comment 2/10 R leg pain at rest Transfer Training Start Time 11:30 Supine to Sit Stand by Assist Transfer Sit to Stand Ability Stand by Assist Bed Mobility Sit to Supine Stand by Assist Additional Mobility Comments STS with FWW Transfer Training End Time 11:40 Total Transfer Training Time 10 min (8-127) Patient uses wheelchair Not Applicable Gait Training Start Time 11:41 Gait Assist Levels Stand by Assist Assistive Devices Front Wheel Walker Ambulation Distance 80 feet Additional Gait Comments 80',100';pain improved w/ increased ambulation;1 standing break d/t fatigue Gait Training End Time 11:55 Total Gait Training Treatment Time 14 min (8-127) Weight Bearing Assessment Label Bilat Lower Extremity Weight Bearing Status Weight Bearing as Vane Static Sitting Balance Good Dynamic Sitting Balance Good Standing Static Balance Fair plus Dynamic Standing Balance Fair plus Additional Balance Assessments Comments with fWW Safety Judgement Good Activity Tolerance Good Equipment Present A pump IV pump Post Treatment Pain Intensity 3 0-10 Variance Documentation see PT note Total Treament Time 24 min (8-127) Total Minutes 24 Total Units 2 PT Technical Record Comment PT NOTE S: Pt c/o 2/10 R LE pain at rest. Agreed to skilled PT. Cleared by YOLIE [place]. O: Received awake in supine. See tech record for assist levels. Transfered to EOB. STS with FWW. Pt c/o increased pain with weight bearing, 6/10. Gait training with FWW, reciprocal gait, pt reported improved pain with ambulation, 1 standing break d/t fatigue, steady with no LOB. Returned back to room and back to EOB. R sided scooting to HOB. Returned to supine. Positioned in semi-chu, call light and all necessities within reach, GENETIC COUNSELLOR at bedside. A: Pt vane tx well. Increased gait distance. Improved pain with increased ambulation. P: Continue with POC. PT CLEARED TO AMBULATE WITH NSG. INFORMED RN.
[2018-03-06] MEDS: CEFTRIAXONE 1 GM/50 ML (PMX) 50 ML IVPB SCH (12:29)
--- NOTE | 2018-03-06 13:56 | PN ---
Date/Time of Note Date/Time of Note DATE: 03/06/18 TIME: 13:53 Assessment/Plan VTE Prophylaxis Risk score (from Nsg)>0 risk: 6 SCD applied (from Nsg): Yes Pharmacological prophylaxis: other (eliquis) Lines/Catheters IV Catheter Type (from Nrsg): Peripheral IV Assessment/Plan Assessment/Plan 73 yo man history of NIDDM presents with RLE cellulitis #Severe sepsis #RLE cellulitis - CT leg negative for deep edema or subQ gas. - Duplex negative for DVT. - Wound culture growing MRSA. Will continue IV vanco and start PO clinda. - Blood cultures NGTD - Podiatry debrided on 03/03, continue daily dressing change. - Also, vascular surgery consulted. - Ibuprofen, norco prn pain #NIDDM - Insulin sliding scale - Glargine qhs #A fib, chronic - Cont home eliquis - Currently not on anything for rate control DVT: eliquis GI: None Dispo: Plan to discharge home Thursday when walker is delivered. Result Diagram: 03/05/18 1035 03/05/18 1035 Results 24hrs Laboratory Tests Test 03/05/18 17:49 03/05/18 20:29 03/06/18 08:11 03/06/18 12:27 Bedside Glucose 142 163 150 150 Subjective 24 Hr Interval Summary Free Text/Dictation No acute overnight events. Patient feeling well. Ambulating with PT but hasn't t ried walking by himself. Exam/Review of Systems Vital Signs Vitals Vital Signs Date Temp Pulse Resp B/P (MAP) Pulse Ox O2 O2 Flow FiO2 Time Delivery Rate 03/06/18 99.0 82 17 111/66 94 Room Air 07:32 (81) 03/03/18 3.0 18:01 Intake and Output 03/05/18 03/05/18 03/06/18 1515:00 23:00 07:00 IntakeIntake Total 700 ml 950 ml 450 ml OutputOutput Total 1550 ml 500 ml BalanceBalance 700 ml -600 ml -50 ml Exam Gen: Well appearing elderly man in no acute distress Eyes: PERRL, no icterus HEENT: Clear oropharynx, moist mucous membranes Neck: No lymphadenopathy Card: irregularly irregular Pulm: Clear to auscultation bilaterally. Abd: Soft, nontender, nondistended. Ext: RLE 2+ tense edema, patchy erythema, tenderness especially of posterior compartment. Limb is bandaged. Skin: Superficial petechiae on RLE. Medications Medications Current Medications IV Flush (NS 3 ml) 3 ml PER PROTOCOL IV ; Start 03/03/18 at 16:00 Ondansetron HCl (Zofran Inj) 4 mg Q6H PRN IV NAUSEA AND/OR VOMITING; Start 03/03/18 at 16:00 Ibuprofen (Motrin) 600 mg Q6H PRN PO PAIN; Start 03/03/18 at 16:00 Acetaminophen/ Hydrocodone Bitart ([place] (5/325)) 1 tab Q6H PRN PO BREAKTHROUGH PAIN Last administered on 03/05/18at 07:16; Admin Dose 1 TAB; Start 03/03/18 at 16:00 Enoxaparin Sodium (Lovenox) 40 mg DAILY SC Last administered on 03/06/18at 08:21; Admin Dose 40 MG; Start 03/04/18 at 09:00 Ceftriaxone Sodium 50 ml @ 100 mls/hr Q24H IVPB Last administered on 03/06/18at 12:29; Admin Dose 100 MLS/HR; Start 03/04/18 at 13:00 Vancomycin HCl (Vanco Iv Per Pharmacy) VANCOMYCIN PER PHARMACY PER PROTOCOL XX ; Start 03/03/18 at 16:00 Diagnostic Test (Pha) (Accu-Chek) 1 ea 02 XX ; Start 03/04/18 at 02:00 Insulin Aspart (Novolog Insulin Pen) NOVOLOG *MODERATE* ALGORITHM WITH MEALS BEDTIME SC Last administered on 03/06/18at 12:39; Admin Dose 2 UNIT; Start 03/03/18 at 21:00 Miscellaneous Information 1 ea NOTE XX ; Start 03/03/18 at 16:30 Glucose (Glutose) 15 gm Q15M PRN PO DECREASED GLUCOSE; Start 03/03/18 at 16:30 Glucose (Glutose) 22.5 gm Q15M PRN PO DECREASED GLUCOSE; Start 03/03/18 at 16:30 Dextrose (D50w Syringe) 25 ml Q15M PRN IV DECREASED GLUCOSE; Start 03/03/18 at 16:30 Dextrose (D50w Syringe) 50 ml Q15M PRN IV DECREASED GLUCOSE; Start 03/03/18 at 16:30 Glucagon (Glucagen) 1 mg Q15M PRN IM DECREASED GLUCOSE; Start 03/03/18 at 16:30 Glucose (Glutose) 15 gm Q15M PRN BUCCAL DECREASED GLUCOSE; Start 03/03/18 at 16:30 Sodium Hypochlorite (Dakin'S (Dilute )) 1 applic DAILY IRR Last administ ered on 03/06/18at 08:14; Admin Dose 1 APPLIC; Start 03/04/18 at 09:00 Vancomycin HCl 250 ml @ 125 mls/hr Q8H IVPB Last administered on 03/06/18at 06:25; Admin Dose 125 MLS/HR; Start 03/05/18 at 07:00 Miscellaneous Information (*Rx Drug Level Order Reminder*) VANCOMYCIN TROUGH AT 1400 ONCE ONCE XX ; Start 03/06/18 at 14:00; Stop 03/06/18 at 14:01 Insulin Glargine (Lantus) 12 units DAILY@2000 SC Last administered on 03/05/18at 20:32; Admin Dose 12 UNITS; Start 03/05/18 at 20:00 NICOLE BLISS MD Mar 06, 2018 13:56
[2018-03-06 14:56] VITALS: BP 110/75; PULSE 111; RESP 16
[2018-03-06] MEDS: CLINDAMYCIN 150 MG CAP PO SCH ×2 (17:44→21:14)
--- NOTE | 2018-03-06 18:34 | NUR ---
No acute distress during the day. VS within acceptable range. Patient c/o minimal leg pain, no medications required.IV antibiotics given. Dressing change done. Blood sugar fluctuated within acceptable range.Patient been seen by , future angiogram needed. Patient remained safe during the day, no falls , noinjury. Will continue to monitor.Patient palced on contact Isolation for MRSA of wound.
[2018-03-06 19:56] VITALS: BP 115/62; PULSE 83; RESP 18
[2018-03-06] MEDS ORDERED: ACETAMINOPHEN 325 MG TAB PO PRN (21:00)
[2018-03-06] MEDS: INSULIN GLARGINE [LANTus] (100 UNITS/ML) SYG SC SCH (21:16)
--- NOTE | 2018-03-06 21:51 | CONS ---
DATE OF ADMISSION: 03/03/2018 DATE OF CONSULTATION: REASON FOR CONSULTATION: Evaluation for peripheral vascular disease. HISTORY OF PRESENT ILLNESS: This is a 77-year-old male with a history of hypertension, diabetes, per ipheral vascular disease. The patient was admitted because of a right leg ulceration, severe celluli tis, and necrosis of the right leg. His venous duplex was negative for any DVT. His arterial duplex was significant for disease in the right lower extremity, moderate stenosis in the left dorsalis ped is artery, monophasic flow within the right posterior tibial artery and significant infrapopliteal st enosis. The patient has cellulitis of the right leg including the foot. PAST MEDICAL HISTORY: Hypertension, hyperlipidemia, diabetes, history of a DVT. PAST SURGICAL HISTORY: None. ALLERGIES: NONE. SOCIAL HISTORY: No smoking, drinking or drug use. REVIEW OF SYSTEMS: GENERAL: Denies any weight loss, weight gain. GASTROINTESTINAL: No upper or lower GI bleeding, nausea, vomiting, constipation, diarrhea. GENITOURINARY: No hematuria or dysuria. FAMILY HISTORY: Positive for atrial fibrillation. MEDICATIONS: List reviewed, which includes: 1. Eliquis. 2. Lovenox. 3. Ceftriaxone. PHYSICAL EXAMINATION: GENERAL: The patient is awake, alert, responds appropriately. Right leg is wrapped. VITAL SIGNS: Blood pressure is 110/65, pulse is 100, respirations 18, saturations 95% on room air. HEENT: Normocephalic, atraumatic. PERRLA. NECK: Supple. No JVD. No carotid bruits. CARDIOVASCULAR: Irregularly irregular. LUNGS: Clear. ABDOMEN: Soft. EXTREMITIES: Legs are warm all the way down to the foot. I cannot palpate any left dorsalis pedis a nd posterior pulses, but the foot is warm. Capillary refill is about 2 seconds. On the right side, the leg is wrapped. I can palpate bilateral femoral pulses that are strong. LABORATORY VALUES: Significant for a hemoglobin of 10, white count 8.3, platelet count 135 and a cre atinine of 0.7. IMPRESSION: 1. Right leg wound. 2. Diabetes. 3. Peripheral vascular disease. RECOMMENDATIONS: We will proceed with an angiogram after debridement has been done. Discussed with the patient and the . All questions answered. Dictated By: TAMMY MCCARTHY/BUFFY Conf#: [id number] DID#: [id number] CC: NICOLE BLISS MD;*[facility]*
[2018-03-07] MEDS: ACCU-CHEK XX SCH (02:00)
[2018-03-07 02:10] VITALS: BP 111/68; PULSE 101; RESP 16
[2018-03-07] MEDS: CLINDAMYCIN 150 MG CAP PO SCH ×3 (05:23→22:47)
[2018-03-07] MEDS: VANCOMYCIN 1 GM 250 ML IVPB SCH ×3 (05:38→22:48)
--- NOTE | 2018-03-07 06:33 | NUR ---
Shift Summary Patient slept poorly during shift, expressed anxiety and anger during shift. Patient walked around the unit twice during shift prior to bedtime medications. No bowel movement during shift. Will endorse care to next shift.
[2018-03-07 07:55] VITALS: BP 95/50; PULSE 65; RESP 18
[2018-03-07] MEDS: INSULIN ASPART [NOVOLOG] 3 ML PEN SC SCH ×4 (08:00→20:40)
[2018-03-07] MEDS: SODIUM HYPOCHLORITE (1/40) 1 APPLIC BTL IRR SCH (08:23)
[2018-03-07] MEDS: ENOXAPARIN 40 MG/0.4 ML SYG SC SCH (08:28)
--- NOTE | 2018-03-07 13:31 | PN ---
Date/Time of Note Date/Time of Note DATE: 03/07/18 TIME: 13:27 Assessment/Plan VTE Prophylaxis Risk score (from Ns)>0 risk: 6 SCD applied (from Nsg): Yes Pharmacological prophylaxis: other (eliquis) Lines/Catheters IV Catheter Type (from Nrsg): Saline Lock Assessment/Plan Assessment/Plan 73 yo man history of NIDDM presents with RLE cellulitis #Severe sepsis #RLE cellulitis - CT leg negative for deep edema or subQ gas. - Duplex negative for DVT. - Wound culture growing MRSA. Will continue IV vanco and start PO clinda. - Blood cultures NGTD - Podiatry debrided on 03/03, continue daily dressing change. - Vascular surgery planning for angiogram. - Ibuprofen, norco prn pain #NIDDM - Insulin sliding scale - Glargine qhs #A fib, chronic - Cont home eliquis - No rate control. DVT: eliquis GI: None Dispo: Plan to discharge home Thursday when walker is delivered, unless vascular plans to do angiogram in house. Result Diagram: 03/07/18 0513 03/07/18 0513 Results 24hrs Laboratory Tests Test 03/06/18 13:57 03/06/18 17:43 03/06/18 21:09 03/07/18 01:18 Vancomycin Level 12.4 Trough Bedside Glucose 157 154 Urine Color ARMANDO Urine Clarity CLEAR Urine pH 5.0 Urine Specific 1.025 [place] Urine Ketones NEGATIVE Urine Nitrite NEGATIVE Urine Bilirubin NEGATIVE Urine 2+ H Urobilinogen Urine Leukocyte NEGATIVE Esterase Urine Hemoglobin NEGATIVE Urine Glucose NEGATIVE Urine Total NEGATIVE Protein Test 03/07/18 05:13 03/07/18 08:21 03/07/18 13:07 White Blood 7.0 Count Red Blood Count 4.05 L Hemoglobin 10.7 L Hematocrit 33.6 L Mean Corpuscular 83.0 Volume Mean Corpuscular 26.4 L Hemoglobin Mean Corpuscular 31.8 L Hemoglobin Dulce nt Red Cell 17.1 H Distribution Width Platelet Count 143 Mean Platelet 12.1 H Volume Immature 1.100 H Granulocytes % Neutrophils % 71.1 Lymphocytes % 14.2 L Monocytes % 11.6 H Eosinophils % 1.6 Basophils % 0.4 Nucleated Red 0.0 Blood Cells % Immature 0.080 H Granulocytes # Neutrophils # 5.0 Lymphocytes # 1.0 Monocytes # 0.8 Eosinophils # 0.1 Basophils # 0.0 Nucleated Red 0.0 Blood Cells # Sodium Level 141 Potassium Level 3.9 Chloride Level 108 Carbon Dioxide 27 Level Anion Gap 6 Blood Urea 13 Nitrogen Creatinine 0.58 L Est Glomerular Filtrat Rate mL/min Glucose Level 141 # Calcium Level 8.4 Total Bilirubin 0.6 Direct Bilirubin 0.00 Indirect 0.6 Bilirubin Aspartate Amino 27 Transf (AST/SGOT ) Alanine 29 Aminotransferase (ALT/SGPT) Alkaline 130 H Phosphatase Total Protein 5.8 L Albumin 2.9 L Globulin 2.90 Albumin/Globulin 1.00 Ratio Bedside Glucose 127 164 Subjective 24 Hr Interval Summary Free Text/Dictation No acute overnight events. He walked with PT yesterday. Patient overall feeling well, no complaints. Exam/Review of Systems Vital Signs Vitals Vital Signs Date Temp Pulse Resp B/P (MAP) Pulse Ox O2 O2 Flow FiO2 Time Delivery Rate 03/07/18 98.1 65 18 95/50 (65) 93 07:55 03/06/18 Room Air 14:56 03/03/18 3.0 18:01 Intake and Output 03/06/18 03/06/18 03/07/18 1515:00 23:00 07:00 IntakeIntake Total 600 ml 670 ml 250 ml OutputOutput Total 225 ml 500 ml BalanceBalance 375 ml 170 ml 250 ml Exam Gen: Well appearing elderly man in no acute distress Eyes: PERRL, no icterus HEENT: Clear oropharynx, moist mucous membranes Neck: No lymphadenopathy Card: irregularly irregular Pulm: Clear to auscultation bilaterally. Abd: Soft, nontender, nondistended. Ext: RLE 1+ nonpitting edema, patchy erythema, mild tenderness of ankle which has significantly improved since admission. Medications Medications Current Medications IV Flush (NS 3 ml) 3 ml PER PROTOCOL IV ; Start 03/03/18 at 16:00 Ondansetron HCl (Zofran Inj) 4 mg Q6H PRN IV NAUSEA AND/OR VOMITING; Start 03/03/18 at 16:00 Ibuprofen (Motrin) 600 mg Q6H PRN PO PAIN; Start 03/03/18 at 16:00 Acetaminophen/ Hydrocodone Bitart ([place] (5/325)) 1 tab Q6H PRN PO BREAKTHROUGH PAIN Last administered on 03/05/18at 07:16; Admin Dose 1 TAB; Start 03/03/18 at 16:00 Enoxaparin Sodium (Lovenox) 40 mg DAILY SC Last administered on 03/07/18at 08:28; Admin Dose 40 MG; Start 03/04/18 at 09:00 Vancomycin HCl (Vanco Iv Per Pharmacy) VANCOMYCIN PER PHARMACY PER PROTOCOL XX ; Start 03/03/18 at 16:00 Diagnostic Test (Pha) (Accu-Chek) 1 ea 02 XX ; Start 03/04/18 at 02:00 Insulin Aspart (Novolog Insulin Pen) NOVOLOG *MODERATE* ALGORITHM WITH MEALS BEDTIME SC Last administered on 03/07/18at 13:18; Admin Dose 2 UNIT; Start 03/03/18 at 21:00 Miscellaneous Information 1 ea NOTE XX ; Start 03/03/18 at 16:30 Glucose (Glutose) 15 gm Q15M PRN PO DECREASED GLUCOSE; Start 03/03/18 at 16:30 Glucose (Glutose) 22.5 gm Q15M PRN PO DECREASED GLUCOSE; Start 03/03/18 at 16:30 Dextrose (D50w Syringe) 25 ml Q15M PRN IV DECREASED GLUCOSE; Start 03/03/18 at 16:30 Dextrose (D50w Syringe) 50 ml Q15M PRN IV DECREASED GLUCOSE; Start 03/03/18 at 16:30 Glucagon (Glucagen) 1 mg Q15M PRN IM DECREASED GLUCOSE; Start 03/03/18 at 16:30 Glucose (Glutose) 15 gm Q15M PRN BUCCAL DECREASED GLUCOSE; Start 03/03/18 at 16:30 Sodium Hypochlorite (Dakin'S (Dilute )) 1 applic DAILY IRR Last adm inistered on 03/07/18at 08:23; Admin Dose 1 APPLIC; Start 03/04/18 at 09:00 Vancomycin HCl 250 ml @ 125 mls/hr Q8H IVPB Last administered on 03/07/18at 05:38; Admin Dose 125 MLS/HR; Start 03/05/18 at 07:00 Insulin Glargine (Lantus) 12 units DAILY@2000 SC Last administered on 03/06/18at 21:16; Admin Dose 12 UNITS; Start 03/05/18 at 20:00 Clindamycin HCl (Cleocin) 450 mg Q8 PO Last administered on 03/07/18 05:23; Admin Dose 450 MG; Start 03/06/18 at 15:00 Acetaminophen (Tylenol Tab) 650 mg Q6H PRN PO MILD PAIN(1-3)OR ELEVATED TEMP Last administered on 03/06/18 21:13; Admin Dose 650 MG; Start 03/06/18 at 21:00 NICOLE BLISS MD Mar 07, 2018 13:31
[2018-03-07 14:00] VITALS: BP 108/67; PULSE 96; RESP 16
[2018-03-07] MEDS ORDERED: POLYETHYLENE GLYCOL 17 GM PACKET PO ONE (15:00)
--- NOTE | 2018-03-07 18:30 | PN ---
Date/Time of Note Date/Time of Note DATE: 03/07/18 TIME: 18:28 Assessment/Plan Lines/Catheters IV Catheter Type (from Nrsg): Saline Lock Assessment/Plan Assessment/Plan IMPRESSION: 1. Right leg wound. 2. Diabetes. 3. Peripheral vascular disease. RECOMMENDATIONS: We will proceed with an angiogram on Thursday. after debridement has been done. Discussed with the patient and the . All questions answered. Subjective 24 Hr Interval Summary Constitutional: improved Pain Control: mild Exam/Review of Systems Vital Signs Vitals Vital Signs Date Temp Pulse Resp B/P (MAP) Pulse Ox O2 O2 Flow FiO2 Time Delivery Rate 03/07/18 99.1 96 16 108/67 94 14:00 (81) 03/06/18 Room Air 14:56 03/03/18 3.0 18:01 Intake and Output 03/06/18 03/06/18 03/07/18 1515:00 23:00 07:00 IntakeIntake Total 600 ml 670 ml 250 ml OutputOutput Total 225 ml 500 ml BalanceBalance 375 ml 170 ml 250 ml Exam Eyes: nl conjunctiva, EOMI, nl lids, nl sclera ENMT: nl external ears & nose, nl lips & teeth, nl nasal mucosa & septum, mucosa pink and moist Neck: supple, non-tender Respiratory: clear to auscultation, normal air movement Cardiovascular: regular rate and rhythm, nl pulses Musculoskeletal: nl extremities to inspection, nl gait and stance Results Result Diagram: 03/07/18 0513 03/07/18 0513 TAMMY MELISSA MD Mar 07, 2018 18:30
--- NOTE | 2018-03-07 18:42 | NUR ---
Patient alert no acute distress. IV antibiotics given to patient,. Patient c/o minimal right leg pain, refused from medication, states that pain is tolerable. Patient had BM.No fever during the day. Blood sugar fluctuated within acceptable rang . Patient remained safe , bed alarm is on at all times. Will continue to monitor.
[2018-03-07 20:15] VITALS: BP 114/67; PULSE 101; RESP 18
[2018-03-07] MEDS: SENNA TAB PO SCH (20:37)
[2018-03-07] MEDS: INSULIN GLARGINE [LANTus] (100 UNITS/ML) SYG SC SCH (20:39)
[2018-03-08 01:40] VITALS: BP 108/59; PULSE 70; RESP 18
[2018-03-08] MEDS: ACCU-CHEK XX SCH (02:00)
--- NOTE | 2018-03-08 05:50 | NUR ---
EOSS: Patient remains stable. Denies any pain this shift. No other complaints at this time. Will endorse to morning nurse for continuity of care.
[2018-03-08] MEDS: VANCOMYCIN 1 GM 250 ML IVPB SCH ×2 (06:28→15:08)
[2018-03-08] MEDS: CLINDAMYCIN 150 MG CAP PO SCH ×3 (06:28→22:03)
[2018-03-08 07:43] VITALS: BP 95/56; PULSE 89; RESP 20
[2018-03-08] MEDS: SODIUM HYPOCHLORITE (1/40) 1 APPLIC BTL IRR SCH (08:00)
[2018-03-08] MEDS: SENNA TAB PO SCH ×2 (08:00→22:02)
[2018-03-08] MEDS: INSULIN ASPART [NOVOLOG] 3 ML PEN SC SCH ×4 (08:22→21:00)
[2018-03-08] MEDS: ENOXAPARIN 40 MG/0.4 ML SYG SC SCH (08:23)
--- NOTE | 2018-03-08 10:35 | PN ---
Date/Time of Note Date/Time of Note DATE: 03/08/18 TIME: 10:33 Assessment/Plan Lines/Catheters IV Catheter Type (from Nrsg): Saline Lock Assessment/Plan Assessment/Plan IMPRESSION: 1. Right leg wound. 2. Diabetes. 3. Peripheral vascular disease. RECOMMENDATIONS: We will proceed with an angiogram on Tomorrow after debridement has been done. Discussed with the patient and the . All questions answered. Subjective 24 Hr Interval Summary Constitutional: improved Pain Control: mild Exam/Review of Systems Vital Signs Vitals Vital Signs Date Temp Pulse Resp B/P (MAP) Pulse Ox O2 O2 Flow FiO2 Time Delivery Rate 03/08/18 98.5 89 20 95/56 (69) 92 07:43 03/06/18 Room Air 14:56 Intake and Output 03/07/18 03/07/18 03/08/18 1515:00 23:00 07:00 IntakeIntake Total 1350 ml 730 ml 250 ml OutputOutput Total 700 ml BalanceBalance 650 ml 730 ml 250 ml Exam ENMT: nl external ears & nose, nl lips & teeth, nl nasal mucosa & septum, mucosa pink and moist Neck: supple, non-tender Respiratory: clear to auscultation, normal air movement Cardiovascular: regular rate and rhythm, nl pulses Gastrointestinal: soft, nl liver, spleen, non-tender Extremities: normal pulses Results Result Diagram: 03/07/18 0513 03/07/18 0513 TAMMY MELISSA MD Mar 08, 2018 10:35
--- NOTE | 2018-03-08 10:58 | PDOCDIS ---
Discharge Instructions CONDITION Aieim3Ps Patient Condition: Reoqs5y Stable HOME CARE INSTRUCTIONS: [id number] Special Diet: Pvhlt6y carb controlled ACTIVITY: Udibh1At Activity Restrictions: Aiusb9m Slowly Increase Activity Rest between Activity Avoid heavy lifting FOLLOW UP/APPOINTMENTS Follow-up Plan Please take your medications as prescribed, see your doctor in clinic in the next few days. Also make sure you come back to [facility] 2 days for your angiogram, this will be performed by your vascular surgeon. JUDITH FRIEND Mar 08, 2018 10:58
[2018-03-08] MEDS ORDERED: CLIN150C17 PO (10:59)
--- NOTE | 2018-03-08 11:14 | DS ---
Date/Time of Note Date/Time of Note DATE: 03/08/18 TIME: 11:00 Discharge Summary Admission/Discharge Info Admit Date/Time Mar 03, 2018 at 14:58 Discharge Date/Time Patient Condition: Stable Hx of Present Illness Mr. Padilla is a pleasant 77 yo man with NIDDM who presents with RLE pain and swelling. 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 He does have two small ulcers on the dorsum of his foot but is not sure when these developed. He developed anorexia, nausea, and had a few episodes of retching but no vomiting. Spent most of Thursday sleeping. The next day symptoms progressively worsened. He took some old oxycodone which did not relieve the pain. He then came in to the ED. In the ED he was febrile to 102.3, tachy to 103, requiring 3L NC. WBC 12.1, lactate 3.8. Admit to med/surg for cellulitis with sepsis. Hospital Course So patient was admitted with sepsis and fevers. Seen by vascular surgery and podiatry teams during this hospital stay. He underwent a bedside debridement of the right lower extremity by podiatry team. He was also placed on broad- spectrum antibiotics for the cellulitis and sepsis. His wound culture from the area did grow positive MRSA and group A strep. Home Meds Active Scripts Clindamycin Hcl* (Cleocin*) 150 Mg Cap, 450 MG PO Q8 for 7 Days, #21 CAP Prov:JUDITH FRIEND. 03/08/18 Reported Medications Metformin Hcl* (Metformin Hcl* ER) 500 Mg Tab.sr.24h, 500 MG PO DAILY, #30 TAB 03/03/18 Apixaban* (Eliquis*) Unknown Strength Tablet, PO BID, TAB 03/03/18 Follow-up Plan Please take your medications as prescribed, see your doctor in clinic in the next few days. Also make sure you come back to [facility] [place] 2 [place] for your angiogram, this will be performed by your vascular surgeon. Primary Care Provider Care Physician No Primary Time spent on discharge: > 30 minutes Pending Labs Laboratory Tests Test 03/07/18 13:07 03/07/18 17:50 03/07/18 20:35 03/08/18 01:40 Bedside 164 132 186 151 Glucose mg/dL (70-220) mg/dL (70-220) mg/dL (70-220) mg/dL (70-220) Test 03/08/18 07:55 Bedside 148 Glucose mg/dL (70-220) JUDITH FRIEND Mar 08, 2018 11:13
--- NOTE | 2018-03-08 11:28 | PN ---
Date/Time of Note Date/Time of Note DATE: 03/08/18 TIME: 11:15 Assessment/Plan VTE Prophylaxis Risk score (from Nsg)>0 risk: 4 SCD applied (from Nsg): No SCD contraindicated: other Pharmacological prophylaxis: apixaban Lines/Catheters IV Catheter Type (from Nrsg): Saline Lock Assessment/Plan Assessment/Plan S: Patient seen by vascular surgery team this morning. Still complaining of some right lower extremity pain. No fevers. O: VS - see below PE: Gen: Lying in bed elderly man in mild distress Eyes: PERRL, no icterus HEENT: Clear oropharynx, moist mucous membranes Neck: supple Card: irregularly irregular Pulm: Clear to auscultation bilaterally. Abd: Soft, nontender, nondistended. Ext: RLE 1+ nonpitting edema, patchy erythema, mild tenderness of ankle which has significantly improved since admission. Assessment/Plan: 73 yo man history of NIDDM presents with RLE cellulitis, and peripheral vascular disease. #Severe sepsis -secondary to RLE cellulitis- CT leg negative for deep edema or subQ gas- Duplex negative for DVT. - Wound culture growing MRSA and group A strep - Podiatry debrided on 03/03. Lower extremity arterial study however positive for peripheral vascular disease. - For now continue IV vanco and PO clinda. - continue daily dressing change. - Vascular surgery planning for angiogram in 48 hours. - Continue ibuprofen, norco prn pain #NIDDM -A1c equals 6.9. Sugars presently stable. -Continue insulin sliding scale - Glargine qhs #A fib, chronic - Cont home eliquis DVT: eliquis GI: None Dispo: Plan to discharge home after angiogram performed and when walker is delivered Result Diagram: 03/07/18 0513 03/07/18 0513 Results 24hrs Laboratory Tests Test 03/07/18 13:07 03/07/18 17:50 03/07/18 20:35 03/08/18 01:40 Bedside Glucose 164 132 186 151 Test 03/08/18 07:55 Bedside Glucose 148 Exam/Review of Systems Vital Signs Vitals Vital Signs Date Temp Pulse Resp B/P (MAP) Pulse Ox O2 O2 Flow FiO2 Time Delivery Rate 03/08/18 98.5 89 20 95/56 (69) 92 07:43 03/06/18 Room Air 14:56 Intake and Output 03/07/18 03/07/18 03/08/18 1515:00 23:00 07:00 IntakeIntake Total 1350 ml 730 ml 250 ml OutputOutput Total 700 ml BalanceBalance 650 ml 730 ml 250 ml Medications Medications Current Medications IV Flush (NS 3 ml) 3 ml PER PROTOCOL IV ; Start 03/03/18 at 16:00 Ondansetron HCl (Zofran Inj) 4 mg Q6H PRN IV NAUSEA AND/OR VOMITING; Start 03/03/18 at 16:00 Ibuprofen (Motrin) 600 mg Q6H PRN PO PAIN; Start 03/03/18 at 16:00 Acetaminophen/ Hydrocodone Bitart ([place] (5/325)) 1 tab Q6H PRN PO BREAKTHROUGH PAIN Last administered on 03/05/18at 07:16; Admin Dose 1 TAB; Start 03/03/18 at 16:00 Enoxaparin Sodium (Lovenox) 40 mg DAILY SC Last administered on 03/08/18at 08:23; Admin Dose 40 MG; Start 03/04/18 at 09:00 Vancomycin HCl (Vanco Iv Per Pharmacy) VANCOMYCIN PER PHARMACY PER PROTOCOL XX ; Start 03/03/18 at 16:00 Diagnostic Test (Pha) (Accu-Chek) 1 ea 02 XX ; Start 03/04/18 at 02:00 Insulin Aspart (Novolog Insulin Pen) NOVOLOG *MODERATE* ALGORITHM WITH MEALS BEDTIME SC Last administered on 03/08/18at 08:22; Admin Dose 2 UNIT; Start 1 05/04/17 at 21:00 Miscellaneous Information 1 ea NOTE XX ; Start 03/03/18 at 16:30 Glucose (Glutose) 15 gm Q15M PRN PO DECREASED GLUCOSE; Start 03/03/18 at 16:30 Glucose (Glutose) 22.5 gm Q15M PRN PO DECREASED GLUCOSE; Start 03/03/18 at 16:30 Dextrose (D50w Syringe) 25 ml Q15M PRN IV DECREASED GLUCOSE; Start 03/03/18 at 16:30 Dextrose (D50w Syringe) 50 ml Q15M PRN IV DECREASED GLUCOSE; Start 03/03/18 at 16:30 Glucagon (Glucagen) 1 mg Q15M PRN IM DECREASED GLUCOSE; Start 03/03/18 at 16: 30 Glucose (Glutose) 15 gm Q15M PRN BUCCAL DECREASED GLUCOSE; Start 03/03/18 at 16:30 Sodium Hypochlorite (Dakin'S (Dilute )) 1 applic DAILY IRR Last administered on 03/08/18at 08:00; Admin Dose 1 APPLIC; Start 03/04/18 at 09:00 Vancomycin HCl 250 ml @ 125 mls/hr Q8H IVPB Last administered on 03/08/18at 06:28; Admin Dose 125 MLS/HR; Start 03/05/18 at 07:00 Insulin Glargine (Lantus) 12 units DAILY@2000 SC Last administered on 03/07/18at 20:39; Admin Dose 12 UNITS; Start 03/05/18 at 20:00 Clindamycin HCl (Cleocin) 450 mg Q8 PO Last administered on 03/08/18at 06:28; Admin Dose 450 MG; Start 03/06/18 at 15:00 Acetaminophen (Tylenol Tab) 650 mg Q6H PRN PO MILD PAIN(1-3)OR ELEVATED TEMP Last administered on 03/06/18at 21:13; Admin Dose 650 MG; Start 03/06/18 at 21:00 Senna (Senokot) 2 tab BID PO Last administered on 03/08/18at 08:00; Admin Dose 2 TAB; Start 03/07/18 at 21:00 Miscellaneous Information (*Rx Drug Level Order Reminder*) VANCOMYCIN TROUGH AT 2200 ONCE ONCE XX ; Start 03/08/18 at 22:00; Stop 03/08/18 at 22:01 JUDITH FRIEND Mar 08, 2018 11:25
[2018-03-08 15:16] VITALS: BP 120/67; PULSE 67; RESP 18
--- NOTE | 2018-03-08 15:50 | NUR ---
[facility] Patient: Pavan Padilla : 1940 Age/Sex: 77/M Unit#: [id number] Room/Bed: 2272/A User: Waylon Putnam PTA Date: 03/08/18 15:31 Type: PT Technical Record Therapy day number 3 Subjective Current complaint of pain Pain Scale NUMERIC Pain Intensity 2 (0-10) Patient Stated Goal for Pain Relief 0 (0-10) Pain Level Comment right leg Exercise Assessment Label Bilat Lower Extremity Exercise Type Active ROM Exercise Start Time 14:00 Exercise End Time 14:15 Total Exercise Time 15 min (8-127) Transfer Training Start Time 14:15 Supine to Sit Supervised Transfer Sit to Stand Ability Supervised Bed Mobility Sit to Supine Supervised Sitting Tolerance 15 min Transfer Training End Time 14:30 Total Transfer Training Time 15 min (8-127) Patient uses wheelchair Not Applicable Gait Training Start Time 14:30 Gait Assist Levels Supervised Assistive Devices Front Wheel Walker Ambulation Distance 200 feet Gait Training End Time 14:40 Total Gait Training Treatment Time 10 min (8-127) Weight Bearing Assessment Label Bilat Lower Extremity Weight Bearing Status Weight Bearing as Vane Static Sitting Balance Good Dynamic Sitting Balance Good Standing Static Balance Fair plus Dynamic Standing Balance Fair Additional Balance Assessments Comments fww Safety Judgement Good Activity Tolerance Good Equipment Present A pump IV pump Post Treatment Pain Intensity 3 0-10 Variance Documentation pls see notes Total Treament Time 40 min (8-127) Total Minutes 40 Total Units 3 PT Technical Record Comment PT notes: same treatment plan given; ambulated approx 200 feet with fww today; safely back to bed after treatment; progressing well; will continue current plan of care.
--- NOTE | 2018-03-08 19:00 | NUR ---
END OF SHIFT NOTES: PT STABLE, ALERT & ORIENTED X4. NO DISTRESS NOTED. DRESSING CHANGE PER ORDER. ACCU CHECK DONE, ALL MEDS GIVEN, INSTRUCTED PT TO CALL FOR ASSISTANCE. VS WNL.HOURLY ROUNDING. CALL LIGHT WITHIN REACH.ALL NEEDS MET. NO NEW COMPLAINTS.
[2018-03-08 20:00] VITALS: BP 111/55; PULSE 80; RESP 20
[2018-03-08] MEDS: APIXABAN 5 MG TABLET PO SCH (22:03)
[2018-03-08] MEDS: INSULIN GLARGINE [LANTus] (100 UNITS/ML) SYG SC SCH (22:15)
[2018-03-09] MEDS: VANCOMYCIN 1 GM 250 ML IVPB SCH ×4 (00:29→22:04)
[2018-03-09 02:00] VITALS: BP 119/72; PULSE 62; RESP 19
[2018-03-09] MEDS: ACCU-CHEK XX SCH (02:00)
--- NOTE | 2018-03-09 02:57 | NUR ---
VANCOMYCIN PER PHARMACY Problem List: RLE DM FOOT CELLULITIS/ULCER, PVD VANCO TROUGH = 13.5 CONTINUE WITH SAME THERAPY VANCO 1 GM Q8HRS
[2018-03-09] MEDS: CLINDAMYCIN 150 MG CAP PO SCH ×3 (05:33→22:04)
--- NOTE | 2018-03-09 07:04 | NUR ---
No significant changes during the shift. IV antibitoics continued. Blood sugar WNL. Slept well. OOB x bathroom
[2018-03-09 07:49] VITALS: BP 108/72; PULSE 78; RESP 18
[2018-03-09] MEDS: INSULIN ASPART [NOVOLOG] 3 ML PEN SC SCH ×4 (08:00→20:52)
[2018-03-09] MEDS: SODIUM HYPOCHLORITE (1/40) 1 APPLIC BTL IRR SCH (08:27)
[2018-03-09] MEDS: SENNA TAB PO SCH ×2 (08:27→20:52)
[2018-03-09] MEDS: APIXABAN 5 MG TABLET PO SCH (08:27)
--- NOTE | 2018-03-09 13:11 | PN ---
Date/Time of Note Date/Time of Note DATE: 03/09/18 TIME: 13:09 Assessment/Plan VTE Prophylaxis Risk score (from Ns)>0 risk: 5 SCD applied (from Ns): No SCD contraindicated: other Pharmacological prophylaxis: apixaban Lines/Catheters IV Catheter Type (from [facility]): Saline Lock Assessment/Plan Hospital Course S: Patient had no acute events overnight. O: VS - see below PE: Gen: Lying in bed elderly man in mild distress Eyes: PERRL, no icterus HEENT: Clear oropharynx, moist mucous membranes Neck: supple Card: irregularly irregular Pulm: Clear to auscultation bilaterally. Abd: Soft, nontender, nondistended. Ext: RLE 1+ nonpitting edema, patchy erythema, mild tenderness of ankle which has significantly improved since admission. Assessment/Plan: 73 yo man history of NIDDM presents with RLE cellulitis, and peripheral vascular disease. #Severe sepsis -secondary to RLE cellulitis- CT leg negative for deep edema or subQ gas- Duplex negative for DVT. - Wound culture growing MRSA and group A strep - Podiatry debrided on 03/03. Lower extremity arterial study however positive for peripheral vascular disease. - For now continue IV vanco and PO clinda. - continue daily dressing change. - Vascular surgery planning for angiogram in 24 hours - Continue ibuprofen, norco prn pain #NIDDM -A1c equals 6.9. Sugars presently stable. -Continue insulin sliding scale - Glargine qhs #A fib, chronic - Cont home eliquis DVT: eliquis GI: None Dispo: Plan to discharge home after angiogram performed and when walker is delivered Result Diagram: 03/09/18 0439 03/09/18 0439 Results 24hrs Laboratory Tests Test 03/08/18 17:49 03/08/18 22:01 03/08/18 22:33 03/09/18 04:39 Bedside Glucose 152 116 Vancomycin Level 13.5 Trough White Blood Count 6.2 Red Blood Count 3.69 L Hemoglobin 9.8 L Hematocrit 30.2 L Mean Corpuscular 81.8 L Volume Mean Corpuscular 26.6 L Hemoglobin Mean Corpuscular 32.5 Hemoglobin Concent Red Cell 17.5 H Distribution Width Platelet Count 201 # Mean Platelet 12.1 H Volume Immature 1.100 H Granulocytes % Neutrophils % 70.4 Lymphocytes % 17.1 Monocytes % 9.6 Eosinophils % 1.3 Basophils % 0.5 Nucleated Red 0.0 Blood Cells % Immature 0.070 H Granulocytes # Neutrophils # 4.3 Lymphocytes # 1.1 Monocytes # 0.6 Eosinophils # 0.1 Basophils # 0.0 Nucleated Red 0.0 Blood Cells # Prothrombin Time 16.5 H Prothrombin Time 1.3 Ratio INR International 1.32 Normalized Ratio Activated 49.[address] Time Sodium Level 138 Potassium Level 3.9 Chloride Level 108 Carbon Dioxide 25 Level Anion Gap 5 Blood Urea 9 Nitrogen Creatinine 0.65 Est Glomerular Filtrat Rate mL/min Glucose Level 98 # Calcium Level 8.4 Test 03/09/18 08:26 03/09/18 12:14 Bedside Glucose 88 116 Exam/Review of Systems Vital Signs Vitals Vital Signs Date Temp Pulse Resp B/P (MAP) Pulse Ox O2 O2 Flow FiO2 Time Delivery Rate 03/09/18 98.9 78 18 108/72 93 Room Air 07:49 (84) Intake and Output 03/08/18 03/08/18 03/09/18 1515:00 23:00 07:00 IntakeIntake Total 1130 ml 670 ml 120 ml OutputOutput Total 750 ml 750 ml 400 ml BalanceBalance 380 ml -80 ml -280 ml Medications Medications Current Medications IV Flush (NS 3 ml) 3 ml PER PROTOCOL IV ; Start 03/03/18 at 16:00 Ondansetron HCl (Zofran Inj) 4 mg Q6H PRN IV NAUSEA AND/OR VOMITING; Start at 16:00 Ibuprofen (Motrin) 600 mg Q6H PRN PO PAIN; Start 03/03/18 at 16:00 Acetaminophen/ Hydrocodone Bitart ([place] (5/325)) 1 tab Q6H PRN PO BREAKTHROUGH PAIN Last administered on 03/05/18at 07:16; Admin Dose 1 TAB; Start 03/03/18 at 16:00 Vancomycin HCl (Vanco Iv Per Pharmacy) VANCOMYCIN PER PHARMACY PER PROTOCOL XX ; Start 03/03/18 at 16:00 Diagnostic Test (Pha) (Accu-Chek) 1 ea 02 XX ; Start 03/04/18 at 02:00 Insulin Aspart (Novolog Insulin Pen) NOVOLOG *MODERATE* ALGORITHM WITH MEALS BEDTIME SC Last administered on 03/08/18at 18:16; Admin Dose 2 UNIT; Start 03/03/18 at 21:00 Miscellaneous Information 1 ea NOTE XX ; Start 03/03/18 at 16:30 Glucose (Glutose) 15 gm Q15M PRN PO DECREASED GLUCOSE; Start 03/03/18 at 16:30 Glucose (Glutose) 22.5 gm Q15M PRN PO DECREASED GLUCOSE; Start 03/03/18 at 16:30 Dextrose (D50w Syringe) 25 ml Q15M PRN IV DECREASED GLUCOSE; Start 03/03/18 at 16:30 Dextrose (D50w Syringe) 50 ml Q15M PRN IV DECREASED GLUCOSE; Start 03/03/18 at 16:30 Glucagon (Glucagen) 1 mg Q15M PRN IM DECREASED GLUCOSE; Start 03/03/18 at 16:30 Glucose (Glutose) 15 gm Q15M PRN BUCCAL DECREASED GLUCOSE; Start 03/03/18 at 16:30 Sodium Hypochlorite (Dakin'S (Dilute )) 1 applic DAILY IRR Last administered on 03/09/18 08:27; Admin Dose 1 APPLIC; Start 03/04/18 at 09:00 Vancomycin HCl 250 ml @ 125 mls/hr Q8H IVPB Last administered on 03/09/18 06 :23; Admin Dose 125 MLS/HR; Start 03/05/18 at 07:00 Insulin Glargine (Lantus) 12 units DAILY@2000 SC Last administered on 03/08/18 22:15; Admin Dose 12 UNITS; Start 03/05/18 at 20:00 Clindamycin HCl (Cleocin) 450 mg Q8 PO Last administered on 03/09/18 05:33; Admin Dose 450 MG; Start 03/06/18 at 15:00 Acetaminophen (Tylenol Tab) 650 mg Q6H PRN PO MILD PAIN(1-3)OR ELEVATED TEMP Last administered on 03/06/18at 21:13; Admin Dose 650 MG; Start 03/06/18 at 21:00 Senna (Senokot) 2 tab BID PO Last administered on 03/09/18 08:27; Admin Dose 2 TAB; Start 03/07/18 at 21:00 JUDITH FRIEND Mar 09, 2018 13:11
[2018-03-09 14:00] VITALS: BP 110/65; PULSE 98; RESP 18
--- NOTE | 2018-03-09 18:50 | NUR ---
End of Shift Summary: Patient is alert & orientated, vital signs stable, no signs of acute distress, no c/o pain. Patient admitted for Right leg cellulitis. Patient is on IV ABX. Wound care and dressing change provided. Accu checks AC/HS, insulin coverage per sliding scale. Plan is for angiogram tomorrow 03/10. Patient instructed to call for assistance, call light within reach, bed alarm on, rounded on hourly, will continue to monitor patient status.
[2018-03-09 20:10] VITALS: BP 92/55; PULSE 68; RESP 18
[2018-03-09] MEDS: INSULIN GLARGINE [LANTus] (100 UNITS/ML) SYG SC SCH (20:57)
[2018-03-10 01:48] VITALS: BP 123/60; PULSE 77; RESP 18
[2018-03-10] MEDS: ACCU-CHEK XX SCH ×2 (01:53→23:03)
--- NOTE | 2018-03-10 05:43 | NUR ---
SHIFT REPORT STABLE DURING THE NIGHT,NO CHANGE OF CONDITION NOTED.DENIES ANY PAIN.DRESSING ON RIGHT FOOT CLEAN AND INTACT.CONTINUE ON IV ANTIBIOTIC ORDERED.WILL CONTINUE PLAN OF CARE
[2018-03-10] MEDS: CLINDAMYCIN 150 MG CAP PO SCH ×3 (06:10→21:29)
[2018-03-10] MEDS: VANCOMYCIN 1 GM 250 ML IVPB SCH ×3 (06:10→22:36)
[2018-03-10] MEDS: INSULIN ASPART [NOVOLOG] 3 ML PEN SC SCH ×4 (08:00→21:00)
[2018-03-10 08:08] VITALS: BP 115/60; PULSE 78; RESP 16
[2018-03-10] MEDS: SODIUM HYPOCHLORITE (1/40) 1 APPLIC BTL IRR SCH (08:44)
[2018-03-10] MEDS: SENNA TAB PO SCH ×2 (09:00→21:28)
--- NOTE | 2018-03-10 09:35 | CONS ---
Date/Time of Note Date/Time of Note DATE: 03/10/18 TIME: 09:17 Consult Date/Type/Reason Admit Date/Time Mar 03, 2018 at 14:58 Initial Consult Date 03-09-18 Type of Consultation: Podiatry Reason for Consultation 1) RLE diabetic foot ulcer 2) RLE cellulitis 3) Edema 4) Leukocytosis Subjective Pt relates itching right lower extremity. Pending angiography. MRSA/ Group A strep. Denies f/n/b. Objective Vital Signs Date Temp Pulse Resp B/P (MAP) Pulse Ox O2 O2 Flow FiO2 Time Delivery Rate 03/10/18 98.2 78 16 115/60 96 08:08 (78) 03/09/18 Room Air 14:00 Intake and Output 03/09/18 03/09/18 03/10/18 1515:00 23:00 07:00 IntakeIntake Total 850 ml 610 ml 250 ml OutputOutput Total 600 ml 200 ml 400 ml BalanceBalance 250 ml 410 ml -150 ml Exam Cellulitis persists right anterior lower leg Contusion with likely skin necrosis, unspecified depth Leg warm Pedal pulses nonpalpable Edema leg and foot right 2+ Femoral/ Popliteal pulse right Results/Medications Result Diagram: 03/10/18 0438 03/10/18 0438 Results 24 hrs Laboratory Tests Test 03/09/18 12:14 03/09/18 17:41 03/09/18 20:51 03/10/18 04:38 Bedside Glucose 116 101 117 White Blood Count 6.5 Red Blood Count 3.99 L Hemoglobin 10.5 L Hematocrit 34.0 L Mean Corpuscular Volume 85.2 Mean Corpuscular 26.3 L Hemoglobin Mean Corpuscular 30.9 L Hemoglobin Concent Red Cell Distribution 17.7 H Width Platelet Count 186 Mean Platelet Volume 11.9 H Immature Granulocytes % 1.100 H Neutrophils % 74.3 Lymphocytes % 14.2 L Monocytes % 8.7 Eosinophils % 1.2 Basophils % 0.5 Nucleated Red Blood 0.0 Cells % Immature Granulocytes # 0.070 H Neutrophils # 4.9 Lymphocytes # 0.9 Monocytes # 0.6 Eosinophils # 0.1 Basophils # 0.0 Nucleated Red Blood 0.0 Cells # Prothrombin Time 15.8 H Prothrombin Time Ratio 1.2 INR International 1.25 Normalized Ratio Activated 41.7 H Partial Thromboplast Time Sodium Level 141 Potassium Level 4.4 Chloride Level 108 Carbon Dioxide Level 24 Anion Gap 9 Blood Urea Nitrogen 10 Creatinine 0.64 Est Glomerular Filtrat Rate mL/min Glucose Level 102 Calcium Level 8.4 Test 03/10/18 08:42 Bedside Glucose 97 Medications Current Medications IV Flush (NS 3 ml) 3 ml PER PROTOCOL IV ; Start 03/03/18 at 16:00 Ondansetron HCl (Zofran Inj) 4 mg Q6H PRN IV NAUSEA AND/OR VOMITING; Start 03/03/18 at 16:00 Ibuprofen (Motrin) 600 mg Q6H PRN PO PAIN; Start 03/03/18 at 16:00 Acetaminophen/ Hydrocodone Bitart ([place] (5/325)) 1 tab Q6H PRN PO BREAKTHROUGH PAIN Last administered on 03/05/18at 07:16; Admin Dose 1 TAB; Start 03/03/18 at 16:00 Vancomycin HCl (Vanco Iv Per Pharmacy) VANCOMYCIN PER PHARMACY PER PROTOCOL XX ; Start 03/03/18 at 16:00 Diagnostic Test (Pha) (Accu-Chek) 1 ea 02 XX ; Start 03/04/18 at 02:00 Insulin Aspart (Novolog Insulin Pen) NOVOLOG *MODERATE* ALGORITHM WITH MEALS BEDTIME SC Last administered on 03/08/18at 18:16; Admin Dose 2 UNIT; Start 03/03/18 at 21:00 Miscellaneous Information 1 ea NOTE XX ; Start 03/03/18 at 16:30 Glucose (Glutose) 15 gm Q15M PRN PO DECREASED GLUCOSE; Start 03/03/18 at 16:30 Glucose (Glutose) 22.5 gm Q15M PRN PO DECREASED GLUCOSE; Start 03/03/18 at 16:30 Dextrose (D50w Syringe) 25 ml Q15M PRN IV DECREASED GLUCOSE; Start 03/03/18 at 16:30 Dextrose (D50w Syringe) 50 ml Q15M PRN IV DECREASED GLUCOSE; Start 03/03/18 at 16:30 Glucagon (Glucagen) 1 mg Q15M PRN IM DECREASED GLUCOSE; Start 03/03/18 at 16:30 Glucose (Glutose) 15 gm Q15M PRN BUCCAL DECREASED GLUCOSE; Start 03/03/18 at 16:30 Sodium Hypochlorite (Dakin'S (Dilute )) 1 applic DAILY IRR Last administered on 03/10/18 08:44; Admin Dose 1 APPLIC; Start 03/04/18 at 09:00 Vancomycin HCl 250 ml @ 125 mls/hr Q8H IVPB Last administered on 03/10/18 06:10; Admin Dose 125 MLS/HR; Start 03/05/18 at 07:00 Insulin Glargine (Lantus) 12 units DAILY@2000 SC Last administered on 03/09/18 20:57; Admin Dose 12 UNITS; Start 03/05/18 at 20:00 Clindamycin HCl (Cleocin) 450 mg Q8 PO Last administered on 03/10/18 06:10; Admin Dose 450 MG; Start 03/06/18 at 15:00 Acetaminophen (Tylenol Tab) 650 mg Q6H PRN PO MILD PAIN(1-3)OR ELEVATED TEMP Last administered on 03/06/18at 21:13; Admin Dose 650 MG; Start 03/06/18 at 21:00 Senna (Senokot) 2 tab BID PO Last administered on 03/09/18 08:27; Admin Dose 2 TAB; Start 03/07/18 at 21:00 Assessment/Plan Chief Complaint/Hosp Course 1) RLE diabetic foot ulcer 2) RLE cellulitis 3) Edema 4) Leukocytosis 5) DM2 with peripheral neuropathy 6) Onychomycosis 7) callus Additional Assessment/Plan Cellulitis right le Contusion right le Edema Angio pending ID consult requested Additional skin care recommendations given to nursing Pt education provided DALE ROTH DPM Mar 10, 2018 09:27
--- NOTE | 2018-03-10 10:00 | NUR ---
PT NOTE Therapy day number 4 Subjective Denies pain Pain Scale NUMERIC Pain Intensity 0 (0-10) Patient Stated Goal for Pain Relief 0 (0-10) Pain Level Comment DENIES PAIN AT REST Transfer Training Start Time 10:00 Supine to Sit Modified Independent Transfer Sit to Stand Ability Supervised Bed Mobility Sit to Supine Modified Independent Additional Mobility Comments STS w/no AD pushing off bed w/BUE to FWW Transfer Training End Time 10:12 Total Transfer Training Time 12 min (8-127) Patient uses wheelchair Not Applicable Gait Training Start Time 10:12 Gait Assist Levels Supervised Assistive Devices Front Wheel Walker Ambulation Distance 120 feet Additional Gait Comments reciprocal pattern, steady gait, no LOB/buckling Gait Training End Time 10:25 Total Gait Training Treatment Time 13 min (8-127) Weight Bearing Assessment Label Bilat Lower Extremity Weight Bearing Status Weight Bearing as Vane Static Sitting Balance Good Dynamic Sitting Balance Good Standing Static Balance Good Dynamic Standing Balance Fair plus Additional Balance Assessments Comments FWW Safety Judgement Good Activity Tolerance Good Equipment Present A pump IV pump Post Treatment Pain Intensity 1 0-10 Variance Documentation SEE BELOW AND PT NOTE Total Treament Time 25 min (8-127) Total Minutes 25 Total Units 2 PT Technical Record Comment PT NOTE S: Pt stated, "Here laying in bed I am fine and have no pain." Agreeable for PT and cleared per YOLIE Quintana. O: Received pt in semi-fowlers, alert. Bed mobility w/HOB elevated [place]. Applied gait belt at EOB. STS w/no AD pushing off bed w/BUE to FWW Supervised. Gait training performed w/FWW 120' Supervised. Noted reciprocal pattern, steady gait, and no LOB/buckling. Pt required VCs to not lift AD when making turns. Pt verbalized and demonstrated w/fair return. Assisted pt BTB. Left pt in comfort position, call light/phone within reach, bed alarmed, and all needs met. YOLIE Quintana informed of pt's status. NAOMI Rollins approached pt's room post tx and pt was left attended w/YOLIE Farfan aware. A: Good tolerance to tx. Pt showed no signs of distress or SOB during or after tx. NO c/o dizziness or nausea throughout tx. Pt reported 5/10 pain on R foot during ambulation w/WB. Bed mobility improved compared to previous tx. P: Continue POC and progress as tolerated.
--- NOTE | 2018-03-10 11:49 | PN ---
Date/Time of Note Date/Time of Note DATE: 03/10/18 TIME: 11:48 Assessment/Plan VTE Prophylaxis Risk score (from Nsg)>0 risk: 5 SCD applied (from Ns): No SCD contraindicated: other Pharmacological prophylaxis: apixaban Lines/Catheters IV Catheter Type (from [facility]): Saline Lock Assessment/Plan Hospital Course S: Patient had no acute events overnight, awaiting angiogram for later today. Seen by PT team earlier. O: VS - see below PE: Gen: Lying in bed elderly man in mild distress Eyes: PERRL, no icterus HEENT: Clear oropharynx, moist mucous membranes Neck: supple Card: irregularly irregular Pulm: Clear to auscultation bilaterally. Abd: Soft, nontender, nondistended. Ext: RLE 1+ nonpitting edema, patchy erythema, mild tenderness of ankle which has significantly improved since admission. Assessment/Plan: 73 yo man history of NIDDM presents with RLE cellulitis, and peripheral vascular disease. #Severe sepsis -secondary to RLE cellulitis- CT leg negative for deep edema or subQ gas- Duplex negative for DVT. - Wound culture growing MRSA and group A strep - Podiatry debrided on 03/03. Lower extremity arterial study however positive for peripheral vascular disease. - For now continue IV vanco and PO clinda - continue daily dressing change. - Vascular surgery planning for angiogram later today - Continue ibuprofen, norco prn pain #NIDDM -A1c equals 6.9. Sugars presently stable. -Continue insulin sliding scale - Glargine qhs #A fib, chronic - Cont home eliquis DVT: eliquis GI: None Dispo: Plan to discharge home after angiogram performed and when walker is delivered Result Diagram: 03/10/18 0438 03/10/18 0438 Results 24hrs Laboratory Tests Test 03/09/18 12:14 03/09/18 17:41 03/09/18 20:51 03/10/18 04:38 Bedside Glucose 116 101 117 White Blood Count 6.5 Red Blood Count 3.99 L Hemoglobin 10.5 L Hematocrit 34.0 L Mean Corpuscular Volume 85.2 Mean Corpuscular 26.3 L Hemoglobin Mean Corpuscular 30.9 L Hemoglobin Concent Red Cell Distribution 17.7 H Width Platelet Count 186 Mean Platelet Volume 11.9 H Immature Granulocytes % 1.100 H Neutrophils % 74.3 Lymphocytes % 14.2 L Monocytes % 8.7 Eosinophils % 1.2 Basophils % 0.5 Nucleated Red Blood 0.0 Cells % Immature Granulocytes # 0.070 H Neutrophils # 4.9 Lymphocytes # 0.9 Monocytes # 0.6 Eosinophils # 0.1 Basophils # 0.0 Nucleated Red Blood 0.0 Cells # Prothrombin Time 15.8 H Prothrombin Time Ratio 1.2 INR International 1.25 Normalized Ratio Activated 41.7 H Partial Thromboplast Time Sodium Level 141 Potassium Level 4.4 Chloride Level 108 Carbon Dioxide Level 24 Anion Gap 9 Blood Urea Nitrogen 10 Creatinine 0.64 Est Glomerular Filtrat Rate mL/min Glucose Level 102 Calcium Level 8.4 Test 03/10/18 08:42 Bedside Glucose 97 Exam/Review of Systems Vital Signs Vitals Vital Signs Date Temp Pulse Resp B/P (MAP) Pulse Ox O2 O2 Flow FiO2 Time Delivery Rate 03/10/18 98.2 78 16 115/60 96 08:08 (78) 03/09/18 Room Air 14:00 Intake and Output 03/09/18 03/09/18 03/10/18 1515:00 23:00 07:00 IntakeIntake Total 850 ml 610 ml 250 ml OutputOutput Total 600 ml 200 ml 400 ml BalanceBalance 250 ml 410 ml -150 ml Medications Medications Current Medications IV Flush (NS 3 ml) 3 ml PER PROTOCOL IV ; Start 03/03/18 at 16:00 Ondansetron HCl (Zofran Inj) 4 mg Q6H PRN IV NAUSEA AND/OR VOMITING; Start 03/03/18 at 16:00 Ibuprofen (Motrin) 600 mg Q6H PRN PO PAIN; Start 03/03/18 at 16:00 Acetaminophen/ Hydrocodone Bitart ([place] (5/325)) 1 tab Q6H PRN PO BREAKTHROUGH PAIN Last administered on 03/05/18at 07:16; Admin Dose 1 TAB; Start 03/03/18 at 16:00 Vancomycin HCl (Vanco Iv Per Pharmacy) VANCOMYCIN PER PHARMACY PER PROTOCOL XX ; Start 03/03/18 at 16:00 Diagnostic Test (Pha) (Accu-Chek) 1 ea 02 XX ; Start 03/04/18 at 02:00 Insulin Aspart (Novolog Insulin Pen) NOVOLOG *MODERATE* ALGORITHM WITH MEALS BEDTIME SC Last administered on 03/08/18 18:16; Admin Dose 2 UNIT; Start 03/03/18 at 21:00 Miscellaneous Information 1 ea NOTE XX ; Start 03/03/18 at 16:30 Glucose (Glutose) 15 gm Q15M PRN PO DECREASED GLUCOSE; Start 03/03/18 at 16:30 Glucose (Glutose) 22.5 gm Q15M PRN PO DECREASED GLUCOSE; Start 03/03/18 at 16:30 Dextrose (D50w Syringe) 25 ml Q15M PRN IV DECREASED GLUCOSE; Start 03/03/18 at 16:30 Dextrose (D50w Syringe) 50 ml Q15M PRN IV DECREASED GLUCOSE; Start 03/03/18 at 16:30 Glucagon (Glucagen) 1 mg Q15M PRN IM DECREASED GLUCOSE; Start 03/03/18 at 16:30 Glucose (Glutose) 15 gm Q15M PRN BUCCAL DECREASED GLUCOSE; Start 03/03/18 at 16:30 Sodium Hypochlorite (Dakin'S (Dilute )) 1 applic DAILY IRR Last administered on 03/10/18 08:44; Admin Dose 1 APPLIC; Start 03/04/18 at 09:00 Vancomycin HCl 250 ml @ 125 mls/hr Q8H IVPB Last administered on 03/10/18 06:10; Admin Dose 125 MLS/HR; Start 03/05/18 at 07:00 Insulin Glargine (Lantus) 12 units DAILY@2000 SC Last administered on 03/09/18 20:57; Admin Dose 12 UNITS; Start 03/05/18 at 20:00 Clindamycin HCl (Cleocin) 450 mg Q8 PO Last administered on 03/10/18 06:10; Admin Dose 450 MG; Start 03/06/18 at 15:00 Acetaminophen (Tylenol Tab) 650 mg Q6H PRN PO MILD PAIN(1-3)OR ELEVATED TEMP Last administered on 03/06/18 21:13; Admin Dose 650 MG; Start 03/06/18 at 21:00 Senna (Senokot) 2 tab BID PO Last administered on 03/09/18 08:27; Admin Dose 2 TAB; Start 03/07/18 at 21:00 JUDITH FRIEND Mar 10, 2018 11:49
--- NOTE | 2018-03-10 11:57 | CONS ---
DATE OF ADMISSION: 03/03/2018 DATE OF CONSULTATION: 03/10/2018 TYPE OF CONSULTATION: Infectious disease. REASON FOR CONSULTATION: Antibiotic management. HISTORY OF PRESENT ILLNESS: Pavan Owen is a 77-year-old male who was brought in for evaluation of right leg redness of 2 days' duration associated with fever. The patient came to the Emergency Room with 2 days of right lower extremity redness, swelling and pain. He also complained of fever. EMS n oted temperature of 102.4. The patient denies trauma and/or antibiotic use. His past problems inclu de: 1. Adult-onset diabetes mellitus. 2. On admission, his white count on 03/03/2018 his white count was 12.1, H and H of 10.8 and 34, kalee telet count 159. BUN and creatinine 23/0.8. 3. The patient had 3+ pitting edema in the right lower extremity with erythema of the right lower leg and mild tenderness to touch. HOSPITAL COURSE: Initially he was started on ceftriaxone. A wound culture from 03/03/2018 grew out methicillin-resistant Staphylococcus and strep biogenous or group A strep. The patient is on vancomy patricia and clindamycin. A lower extremity CT scan on 03/03/2018 showed circumferential subcutaneous sof t tissue edema, predominantly noted distal to the mid tibial diaphysis and focal areas of soft tissue inflammation along the anterior and anteromedial aspect of the distal tibia and lateral aspect of th e distal fibula. There is no deep soft tissue swelling or soft tissue abscess appreciated. No CT ellen dence of bone destructive process or osteomyelitis. Foot x-ray was unremarkable. A venous Doppler s howed no evidence of DVT. An extremity arterial study showed no significant arterial stenosis in the right leg above the popliteal artery, right posterior tibial artery and dorsalis pedis arteries were not visualized secondary to overlying bandaging, moderate stenosis in the left dorsalis pedis artery and no other significant arterial stenosis in the left leg. CHEST X-RAY: No acute infiltrate, mild cardiomegaly. Repeat arterial study of the right leg for non healing right foot ulcer showed mono-aphasic waveforms in the posterior tibial and dorsalis pedis art eries consistent with significant infrapopliteal stenosis. The patient was seen by Dr. Miles in podiatry on 03/03/2018. He had right lower extremity debridement of skin and subcutaneous tissue of the right lower extremity diabetic foot ulcer, copious saline irrigation, wound cultures were obtaine d. No open wound sites appreciated. CT scan reviewed, arterial noninvasive studies ordered which we re done. He noted diabetic peripheral neuropathy and onychomycosis as well as callus. On 03/05/2018 the diabetic foot ulcer appeared to be improved. He still had right lower extremity cellulitis, rayna kocytosis resolved, was 8.3. PAST MEDICAL HISTORY: Operations as outlined. FAMILY HISTORY: Noncontributory. SOCIAL HISTORY: Does not smoke, drink or abuse drugs. ALLERGIES: None to penicillin, sulfa or foods. MEDICATIONS: Per chart. REVIEW OF SYSTEMS: Noncontributory. PHYSICAL EXAMINATION: GENERAL: The patient is lying in bed in mild distress. VITAL SIGNS: Stable. He is afebrile. SKIN: Without generalized rash. HEENT: Within normal limits. NECK: Supple. LYMPH NODES: None palpable. CHEST: Decreased breath sounds at the bases. HEART: Without murmur, gallop. Has an irregularly irregular rhythm. ABDOMEN: Soft, nontender, without organosplenomegaly or masses. EXTREMITIES: Without cyanosis, clubbing, or edema. RECTAL AND GENITAL: Deferred. NEUROLOGIC: No focal neurological abnormalities. IMPRESSION AND PLAN: Pavan Owen is a 77-year-old male with diabetes and diabetic neuropathy, who p resents with right lower extremity cellulitis and with a diabetic foot ulcer. He still has some patc hy erythema, mild tenderness of the ankle and he is currently on vancomycin and clindamycin. I will continue him on this current therapy. He is growing MRSA and group A strep. I will dictate my findi ngs to the hospitalists, to Dr. Miles and Dr. Weinberg. Dictated By: DAYSI ALEXANDRE MD, JD/NTS Conf#: [id number] DID#: [id number] CC: NICOLE BLISS MD;*EndCC*
--- NOTE | 2018-03-10 14:01 | PN ---
Date/Time of Note Date/Time of Note DATE: 03/10/18 TIME: 14:01 Assessment/Plan VTE Prophylaxis Risk score (from Nsg)>0 risk: 5 Pharmacological prophylaxis: heparin Lines/Catheters IV Catheter Type (from Nrsg): Saline Lock Assessment/Plan Hospital Course 77 y/o diabetic male with hx of a-fib presents to the floor with right lower extremity cellulitis. Patient states that a couple days ago he was experiencing fatigue, fevers, and noted increased redness/swelling to the right lower extremity. Patient stated he had decreased appetite as well. Patient also relates he attempted to cut his own toe nails, accidently cut his own skin and had bled significantly. He also relates that he was wearing tight socks and possible that his right 5th toenail got caught when trying to remove it. Patient states that when standing still the pain to his right lower extremity is worsened and feels like dull throbbing ache. Pain does not radiate towards the proximal aspect of his leg. Assessment/Plan 1) RLE diabetic foot ulcer - improved 2) RLE cellulitis - improved 3) Edema 4) Leukocytosis - resolved 5) DM2 with peripheral neuropathy 6) Onychomycosis 7) callus Plan: Continue with daily dressing changes with compression wraps. 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 Non invasive arterial studies are showing infrapopliteal disease. Appreciate vascular input. Continue with IV abx per recommendations. No debridement planned at this time. Medical decisions, treatment, and plan coordinated with Dr. Weinberg. Result Diagram: 03/10/18 0438 03/10/18 0438 Results 24hrs Laboratory Tests Test 03/09/18 17:41 03/09/18 20:51 03/10/18 04:38 03/10/18 08:42 Bedside Glucose 101 117 97 White Blood Count 6.5 Red Blood Count 3.99 L Hemoglobin 10.5 L Hematocrit 34.0 L Mean Corpuscular Volume 85.2 Mean Corpuscular 26.3 L Hemoglobin Mean Corpuscular 30.9 L Hemoglobin Concent Red Cell Distribution 17.7 H Width Platelet Count 186 Mean Platelet Volume 11.9 H Immature Granulocytes % 1.100 H Neutrophils % 74.3 Lymphocytes % 14.2 L Monocytes % 8.7 Eosinophils % 1.2 Basophils % 0.5 Nucleated Red Blood 0.0 Cells % Immature Granulocytes # 0.070 H Neutrophils # 4.9 Lymphocytes # 0.9 Monocytes # 0.6 Eosinophils # 0.1 Basophils # 0.0 Nucleated Red Blood 0.0 Cells # Prothrombin Time 15.8 H Prothrombin Time Ratio 1.2 INR International 1.25 Normalized Ratio Activated 41.7 H Partial Thromboplast Time Sodium Level 141 Potassium Level 4.4 Chloride Level 108 Carbon Dioxide Level 24 Anion Gap 9 Blood Urea Nitrogen 10 Creatinine 0.64 Est Glomerular Filtrat Rate mL/min Glucose Level 102 Calcium Level 8.4 Test 03/10/18 12:45 Bedside Glucose 83 Subjective 24 Hr Interval Summary Free Text/Dictation No acute events overnight. Exam/Review of Systems Vital Signs Vitals Vital Signs Date Temp Pulse Resp B/P (MAP) Pulse Ox O2 O2 Flow FiO2 Time Delivery Rate 03/10/18 98.2 78 16 115/60 96 08:08 (78) 03/09/18 Room Air 14:00 Intake and Output 03/09/18 03/09/18 03/10/18 1515:00 23:00 07:00 IntakeIntake Total 850 ml 610 ml 250 ml OutputOutput Total 600 ml 200 ml 400 ml BalanceBalance 250 ml 410 ml -150 ml Exam Unable to palpable pedal pulses popliteal pulses palpable Diffuse erythema to tibial region of right lower extremity 2+ pitting edema right lower extremity mycotic toe nails appreciated Right 5th digit with 0.3 x 0.3 x 0.2cm ulceration site with no purulence appreciated. HPK lesion to right distal hallux with no underlying wound Dorsal right foot partial thickness ulcer site 0.2 x 0.2 x 0.1 medial and lateral. Granular in nature, no purulence expressed, no probing to bone Absent protective sensations to the feet Muscle strength is 5/5 in all compartments of the foot. CT lower extremity 1. Circumferential subcutaneous soft tissue edema predominately noted distal to the mid tibial diaphysis and focal areas of soft tissue inflammation along the anterior and anterior medial aspect of the distal tibia and lateral aspect of the distal fibula. There is no deep soft tissue swelling or soft tissue abscess appreciated. 2. No CT evidence of bone destructive process or osteomyelitis. Medications Medications Current Medications IV Flush (NS 3 ml) 3 ml PER PROTOCOL IV ; Start 03/03/18 at 16:00 Ondansetron HCl (Zofran Inj) 4 mg Q6H PRN IV NAUSEA AND/OR VOMITING; Start 03/03/18 at 16:00 Ibuprofen (Motrin) 600 mg Q6H PRN PO PAIN; Start 03/03/18 at 16:00 Acetaminophen/ Hydrocodone Bitart ([place] (5/325)) 1 tab Q6H PRN PO BREAKTHROUGH PAIN Last administered on 03/05/18at 07:16; Admin Dose 1 TAB; Start 03/03/18 at 16:00 Vancomycin HCl (Vanco Iv Per Pharmacy) VANCOMYCIN PER PHARMACY PER PROTOCOL XX ; Start 03/03/18 at 16:00 Diagnostic Test (Pha) (Accu-Chek) 1 ea 02 XX ; Start 03/04/18 at 02:00 Insulin Aspart (Novolog Insulin Pen) NOVOLOG *MODERATE* ALGORITHM WITH MEALS BEDTIME SC Last administered on 03/08/18at 18:16; Admin Dose 2 UNIT; Start 03/03/18 at 21:00 Miscellaneous Information 1 ea NOTE XX ; Start 03/03/18 at 16:30 Glucose (Glutose) 15 gm Q15M PRN PO DECREASED GLUCOSE; Start 03/03/18 at 16:30 Glucose (Glutose) 22.5 gm Q15M PRN PO DECREASED GLUCOSE; Start 03/03/18 at 16:30 Dextrose (D50w Syringe) 25 ml Q15M PRN IV DECREASED GLUCOSE; Start 03/03/18 at 16:30 Dextrose (D50w Syringe) 50 ml Q15M PRN IV DECREASED GLUCOSE; Start 03/03/18 at 16:30 Glucagon (Glucagen) 1 mg Q15M PRN IM DECREASED GLUCOSE; Start 03/03/18 at 16:30 Glucose (Glutose) 15 gm Q15M PRN BUCCAL DECREASED GLUCOSE; Start 03/03/18 at 16:30 Sodium Hypochlorite (Dakin'S (Dilute )) 1 applic DAILY IRR Last administered on 03/10/18 08:44; Admin Dose 1 APPLIC; Start 03/04/18 at 09:00 Vancomycin HCl 250 ml @ 125 mls/hr Q8H IVPB Last administered on 03/10/18 06:10; Admin Dose 125 MLS/HR; Start 03/05/18 at 07:00 Insulin Glargine (Lantus) 12 units DAILY@2000 SC Last administered on 03/09/18 20:57; Admin Dose 12 UNITS; Start 03/05/18 at 20:00 Clindamycin HCl (Cleocin) 450 mg Q8 PO Last administered on 03/10/18 06:10; Admin Dose 450 MG; Start 03/06/18 at 15:00 Acetaminophen (Tylenol Tab) 650 mg Q6H PRN PO MILD PAIN(1-3)OR ELEVATED TEMP Last administered on 03/06/18at 21:13; Admin Dose 650 MG; Start 03/06/18 at 21:00 Senna (Senokot) 2 tab BID PO Last administered on 03/09/18at 08:27; Admin Dose 2 TAB; Start 03/07/18 at 21:00 IGNACIO RIVERA DPM Mar 10, 2018 14:01
[2018-03-10 14:38] VITALS: BP 113/65; PULSE 78; RESP 18
--- NOTE | 2018-03-10 18:08 | PN ---
Date/Time of Note Date/Time of Note DATE: 03/10/18 TIME: 18:06 Assessment/Plan Lines/Catheters IV Catheter Type (from Nrsg): Saline Lock Assessment/Plan Assessment/Plan IMPRESSION: 1. Right leg wound. 2. Diabetes. 3. Peripheral vascular disease. 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 Discussed with the patient and the . All questions answered. Subjective 24 Hr Interval Summary Constitutional: improved Pain Control: mild Exam/Review of Systems Vital Signs Vitals Vital Signs Date Temp Pulse Resp B/P (MAP) Pulse Ox O2 O2 Flow FiO2 Time Delivery Rate 03/10/18 98.6 78 18 113/65 95 14:38 (81) 03/09/18 Room Air 14:00 Intake and Output 03/09/18 03/09/18 03/10/18 1515:00 23:00 07:00 IntakeIntake Total 850 ml 610 ml 250 ml OutputOutput Total 600 ml 200 ml 400 ml BalanceBalance 250 ml 410 ml -150 ml Exam Eyes: nl conjunctiva, EOMI, nl lids, nl sclera ENMT: nl external ears & nose, nl lips & teeth, nl nasal mucosa & septum, mucosa pink and moist Neck: supple, non-tender Respiratory: clear to auscultation, normal air movement Cardiovascular: regular rate and rhythm, nl pulses Musculoskeletal: nl extremities to inspection, nl gait and stance Results Result Diagram: 03/10/18 0438 03/10/18 0438 TAMMY MELISSA MD Mar 10, 2018 18:08
--- NOTE | 2018-03-10 19:37 | NUR ---
End of shift : Patient in stable condition .V.S WNL Wound care done for today .Angiogram cancelled today .Planning tomorrow .Patient will be NPO after midnight.Full report given to next shift RN
[2018-03-10 19:54] VITALS: BP 118/66; PULSE 87; RESP 18
[2018-03-10] MEDS: INSULIN GLARGINE [LANTus] (100 UNITS/ML) SYG SC SCH (21:35)
[2018-03-11 01:35] VITALS: BP 115/76; PULSE 93; RESP 16
[2018-03-11] MEDS: CLINDAMYCIN 150 MG CAP PO SCH (06:25)
[2018-03-11] MEDS: VANCOMYCIN 1 GM 250 ML IVPB SCH ×3 (06:25→23:14)
--- NOTE | 2018-03-11 06:32 | NUR ---
PATIENT REMAINED NPO SINCE [place] FOR POSSIBLE ANGIOGRAM TODAY. CONTINUE POC INCLUDING DM MANAGEMENT, ATB THERAPY, AND AFTER POSSIBLE ANGIOGRAM TODAY, EVENTUALLY D/C TO HOME WHEN CLEARED BY MD. PATIENT ALREADY HAS THE WALKER DELIVERED TO HIS ROOM.
[2018-03-11 07:32] VITALS: BP 125/88; PULSE 82; RESP 16
[2018-03-11] MEDS: INSULIN ASPART [NOVOLOG] 3 ML PEN SC SCH ×4 (08:00→21:00)
[2018-03-11] MEDS: SENNA TAB PO SCH ×2 (09:00→20:20)
--- NOTE | 2018-03-11 10:01 | NUR ---
PT NOTE Therapy day number 5 Subjective Current complaint of pain Pain Scale NUMERIC Pain Intensity 4 (0-10) Patient Stated Goal for Pain Relief 0 (0-10) Pain Level Comment R leg Exercise Assessment Label Bilat Lower Extremity Exercise Type Active ROM Additional Exercise Comments Semi-fowlers: AP's, heel slides, SLR Exercise Start Time 10:01 Exercise End Time 10:11 Total Exercise Time 10 min (8-127) Transfer Training Start Time 10:11 Supine to Sit Modified Independent Transfer Sit to Stand Ability Supervised Bed Mobility Sit to Supine Modified Independent Additional Mobility Comments STS w/no AD pushing off bed w/BUE to FWW Transfer Training End Time 10:25 Total Transfer Training Time 14 min (8-127) Patient uses wheelchair Not Applicable Gait Training Start Time 10:25 Gait Assist Levels Supervised Assistive Devices Front Wheel Walker Ambulation Distance 150 feet Additional Gait Comments reciprocal pattern, steady gait, no LOB/buckling Gait Training End Time 10:39 Total Gait Training Treatment Time 14 min (8-127) Weight Bearing Assessment Label Bilat Lower Extremity Weight Bearing Status Weight Bearing as Vane Static Sitting Balance Good Dynamic Sitting Balance Good Standing Static Balance Good Dynamic Standing Balance Fair plus Additional Balance Assessments Comments FWW Safety Judgement Good Activity Tolerance Good Equipment Present A pump IV pump Post Treatment Pain Intensity 6 0-10 Variance Documentation SEE BELOW AND PT NOTE Total Treament Time 38 min (8-127) Total Minutes 38 Total Units 3 PT Technical Record Comment PT NOTE S: Pt stated, "I'm doing okay today." Agreeable for PT and cleared per YOLIE Woodard. O: Received pt in semi-fowlers, alert. Bed mobility w/HOB elevated Remberto. Applied gait belt at EOB. STS w/no AD pushing off bed w/BUE to FWW Supervised. Gait training performed w/FWW 150' Supervised/Remberto. Noted reciprocal pattern, steady gait, and no LOB/buckling. Pt required Min VCs to not lift AD when making turns. Pt verbalized and demonstrated w/fair return. Assisted pt BTB. Pt performed AROM BLE thera ex in semi-fowlers, see above for exercises, 2 sets x 10 per exercise. Left pt in comfort position, call light/phone within reach, bed alarmed, and all needs met. YOLIE Woodard informed of pt's status. A: Good tolerance to tx. Pt showed no signs of distress or SOB during or after tx. No c/o dizziness or nausea throughout tx. Pt reported 6/10 pain on R foot during ambulation w/WB and mild fatigue post tx. Gait distance improved compared to previous tx. P: Continue POC and progress as tolerated.
[2018-03-11] MEDS ORDERED: AMPI500C9 PO (11:33)
--- NOTE | 2018-03-11 11:37 | DS ---
Date/Time of Note Date/Time of Note DATE: 03/11/18 TIME: 11:34 Discharge Summary Admission/Discharge Info Admit Date/Time Mar 03, 2018 at 14:58 Discharge Date/Time Discharge Diagnosis #Severe sepsis -secondary to RLE cellulitis- CT leg negative for deep edema or subQ gas- Duplex negative for DVT. - Wound culture growing MRSA and group A strep - Podiatry debrided on 03/03. Lower extremity arterial study however positive for peripheral vascular disease. #NIDDM -A1c equals 6.9. Sugars presently stable. #A fib, chronic -on home eliquis Patient Condition: Stable Hx of Present Illness Mr. Padilla is a pleasant 77 yo man with NIDDM who presents with RLE pain and swelling. 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 He does have two small ulcers on the dorsum of his foot but is not sure when these developed. He developed anorexia, nausea, and had a few episodes of retching but no vomiting. Spent most of Thursday s leeping. The next day symptoms progressively worsened. He took some old oxycodone which did not relieve the pain. He then came in to the ED. In the ED he was febrile to 102.3, tachy to 103, requiring 3L NC. WBC 12.1, lactate 3.8. Admit to med/surg for cellulitis with sepsis. Hospital Course So patient was admitted with sepsis and fevers. Seen by vascular surgery and podiatry teams during this hospital stay. He underwent a bedside debridement of the right lower extremity by podiatry team. He was also placed on broad- spectrum antibiotics for the cellulitis and sepsis. His wound culture from the area did grow positive MRSA and group A strep. Over the course of his hospital stay white blood cell count was normal, fever subsided. His sugars were stable with appropriate insulin regimen, A1c was found to be 6.9. He was supposed to also undergo angiogram to further evaluate his peripheral vascular disease in his lower extremities, however the machine was not working here at the hospital and patient will need to follow-up with an angiogram to be performed as an outpatient in the next few days with a vascular surgeon, and we will try to set him up with that. See below for full list of discharge medications. Home Meds Active Scripts Ampicillin* (Ampicillin*) 500 Mg Cap, 500 MG PO Q8 for 7 Days, #21 CAP Prov:JUDITH FRIEND S. 03/11/18 Clindamycin Hcl* (Cleocin*) 150 Mg Cap, 450 MG PO Q8 for 7 Days, #21 CAP Prov:JUDITH FRIEND S. 03/08/18 Reported Medications Metformin Hcl* (Metformin Hcl* ER) 500 Mg Tab.sr.24h, 500 MG PO DAILY, #30 TAB 03/03/18 Apixaban* (Eliquis*) Unknown Strength Tablet, PO BID, TAB 03/03/18 Follow-up Plan Please take your medications as prescribed, see your doctor in clinic in the next few days. Also make sure [facility] come [facility] for your angiogram, this will be performed by your vascular surgeon. Primary Care Provider Care Physician No Primary Time spent on discharge: > 30 minutes Pending Labs Laboratory Tests Test 03/10/18 12:45 03/10/18 17:42 03/10/18 21:28 03/11/18 04:57 Bedside 83 73 110 Glucose mg/dL (70-220) mg/dL (70-220) mg/dL (70-220) White Blood 6.7 Count 10^3/ul (4.8-1 0.8) Red Blood 3.79 Count 10^6/ul (4.70- 6.10) Hemoglobin 10.2 g/dl (14.0-18. 0) Hematocrit 32.3 % (42.0-52.0) Mean 85.2 Corpuscular fl (82.0-101.0 Volume ) Mean 26.9 Corpuscular pg (29.0-33.0) Hemoglobin Mean 31.6 Corpuscular g/dl (32.0-37. Hemoglobin Conc 0) ent Red Cell 18.0 Distribution % (11.5-14.5) Width Platelet Count 200 10^3/UL (140-4 15) Mean Platelet 12.0 Volume fl (7.4-10.4) Immature 0.900 Granulocytes % % (0.001-0.429 ) Neutrophils % 75.1 % (39.0-77.0) Lymphocytes % 14.2 % (15.0-51.0) Monocytes % 8.1 % (0.0-11.0) Eosinophils % 1.3 % (0.0-7.0) Basophils % 0.4 % (0.0-2.0) Nucleated Red 0.0 Blood Cells % /100WBC (0.0-0 .0) Immature 0.060 Granulocytes # 10^3/ul (0.0-0 .031) Neutrophils # 5.0 10^3/ul (1.6-7 .5) Lymphocytes # 1.0 10^3/ul (0.8-2 .9) Monocytes # 0.5 10^3/ul (0.3-0 .9) Eosinophils # 0.1 10^3/ul (0.0-0 .5) Basophils # 0.0 10^3/ul (0.0-0 .1) Nucleated Red 0.0 Blood Cells # 10^3/ul (0.0-0 .0) Sodium Level 141 mmol/L (135-14 4) Potassium 4.2 Level mmol/L (3.5-5. 1) Chloride Level 107 mmol/L (97-110 ) Carbon Dioxide 24 Level mmol/L (21-31) Anion Gap 10 (5-13) Blood Urea 10 Nitrogen mg/dl (7-20) Creatinine 0.61 mg/dl (0.61-1. 24) Est Glomerular mL/min (>60) Filtrat Rate mL/min Glucose Level 107 mg/dl (70-220) Calcium Level 8.5 mg/dl (8.4-10. 2) Test 03/11/18 08:14 Bedside 103 Glucose mg/dL (70-220) JUDITH FRIEND Mar 11, 2018 11:37
--- NOTE | 2018-03-11 12:15 | NUR ---
CM NOTE: OUTPATIENT FOLLOWUP Called pt Health plan (P:[phone]) regarding outpatient f/u with vascular surgeon, per pt insurance, pt does not need prior authorization for outpatient f/u. YOLIE Woodard aware, Dr. Campuzano aware. Clement Kong RN CM [phone]
[2018-03-11 14:13] VITALS: BP 119/65; PULSE 92; RESP 16
--- NOTE | 2018-03-11 14:52 | CONS ---
Date/Time of Note Date/Time of Note DATE: 03/11/18 TIME: 14:51 Assessment/Plan Assessment/Plan Hospital Course Patient is alert feels better looks comfortable no fevers overnight WBC 6.7 H&H 10.2 and 32.3 platelets 200 neutrophils 75.1 BUN 10 creatinine 0.61 Microbiology: Right lower extremity wound culture grew MRSA and strep pyogenous Antimicrobials: Vancomycin clindamycin Physical examination: This is a well-nourished well-developed elderly man who is alert in no distress. Head atraumatic normocephalic sclera nonicteric. Neck is supple chest rise symmetrical breath sounds clear. Heart: S1-S2 abdomen soft bowel sounds present extremities with right lower extremity Pito wrap Assessment: 1. Right diabetic foot ulceration with cellulitis 2. Diabetes 3. Peripheral arterial disease Plan: Patient remained stable we will discontinue clindamycin and keep him on IV Vanco. Strep pyogenous was resistant to clindamycin. Continue local wound care per podiatry recommendations, follow vascular recommendations. Monitor renal function closely while on vancomycin Result Diagram: 03/11/18 0457 03/11/18 0457 Results 24hrs Laboratory Tests Test 03/10/18 17:42 03/10/18 21:28 03/11/18 04:57 03/11/18 08:14 Bedside Glucose 73 110 103 White Blood Count 6.7 Red Blood Count 3.79 L Hemoglobin 10.2 L Hematocrit 32.3 L Mean Corpuscular Volume 85.2 Mean Corpuscular 26.9 L Hemoglobin Mean Corpuscular 31.6 L Hemoglobin Concent Red Cell Distribution 18.0 H Width Platelet Count 200 Mean Platelet Volume 12.0 H Immature Granulocytes % 0.900 H Neutrophils % 75.1 Lymphocytes % 14.2 L Monocytes % 8.1 Eosinophils % 1.3 Basophils % 0.4 Nucleated Red Blood 0.0 Cells % Immature Granulocytes # 0.060 H Neutrophils # 5.0 Lymphocytes # 1.0 Monocytes # 0.5 Eosinophils # 0.1 Basophils # 0.0 Nucleated Red Blood 0.0 Cells # Sodium Level 141 Potassium Level 4.2 Chloride Level 107 Carbon Dioxide Level 24 Anion Gap 10 Blood Urea Nitrogen 10 Creatinine 0.61 Est Glomerular Filtrat Rate mL/min Glucose Level 107 Calcium Level 8.5 Test 03/11/18 12:33 Bedside Glucose 90 Consultation Date/Type/Reason Admit Date/Time Mar 03, 2018 at 14:58 Initial Consult Date Type of Consult ID Exam/Review of Systems Vital Signs Vitals Vital Signs Date Temp Pulse Resp B/P (MAP) Pulse Ox O2 O2 Flow FiO2 Time Delivery Rate 03/11/18 98.2 92 16 119/65 95 14:13 (83) 03/09/18 Room Air 14:00 Intake and Output 03/10/18 03/10/18 03/11/18 1515:00 23:00 07:00 IntakeIntake Total 450 ml 1450 ml 310 ml OutputOutput Total 450 ml 400 ml 600 ml BalanceBalance 0 ml 1050 ml -290 ml Medications Medications Current Medications IV Flush (NS 3 ml) 3 ml PER PROTOCOL IV ; Start 03/03/18 at 16:00 Ondansetron HCl (Zofran Inj) 4 mg Q6H PRN IV NAUSEA AND/OR VOMITING; Start 03/03/18 at 16:00 Ibuprofen (Motrin) 600 mg Q6H PRN PO PAIN; Start 03/03/18 at 16:00 Acetaminophen/ Hydrocodone Bitart ([place] (5/325)) 1 tab Q6H PRN PO BREAKTHROUGH PAIN Last administered on 03/05/18at 07:16; Admin Dose 1 TAB; Start 03/03/18 at 16:00 Vancomycin HCl (Vanco Iv Per Pharmacy) VANCOMYCIN PER PHARMACY PER PROTOCOL XX ; Start 03/03/18 at 16:00 Diagnostic Test (Pha) (Accu-Chek) 1 ea 02 XX ; Start 03/04/18 at 02:00 Insulin Aspart (Novolog Insulin Pen) NOVOLOG *MODERATE* ALGORITHM WITH MEALS BEDTIME SC Last administered on 03/08/18at 18:16; Admin Dose 2 UNIT; Start 03/03/18 at 21:00 Miscellaneous Information 1 ea NOTE XX ; Start 03/03/18 at 16:30 Glucose (Glutose) 15 gm Q15M PRN PO DECREASED GLUCOSE; Start 03/03/18 at 16:30 Glucose (Glutose) 22.5 gm Q15M PRN PO DECREASED GLUCOSE; Start 03/03/18 at 16:30 Dextrose (D50w Syringe) 25 ml Q15M PRN IV DECREASED GLUCOSE; Start 03/03/18 at 16:30 Dextrose (D50w Syringe) 50 ml Q15M PRN IV DECREASED GLUCOSE; Start 03/03/18 at 16:30 Glucagon (Glucagen) 1 mg Q15M PRN IM DECREASED GLUCOSE; Start 03/03/18 at 16:30 Glucose (Glutose) 15 gm Q15M PRN BUCCAL DECREASED GLUCOSE; Start 03/03/18 at 16:30 Sodium Hypochlorite (Dakin'S (Dilute )) 1 applic DAILY IRR Last administe red on 03/10/18 08:44; Admin Dose 1 APPLIC; Start 03/04/18 at 09:00 Vancomycin HCl 250 ml @ 125 mls/hr Q8H IVPB Last administered on 03/11/18 06:25; Admin Dose 125 MLS/HR; Start 03/05/18 at 07:00 Insulin Glargine (Lantus) 12 units DAILY@2000 SC Last administered on 03/10/18 21:35; Admin Dose 12 UNITS; Start 03/05/18 at 20:00 Clindamycin HCl (Cleocin) 450 mg Q8 PO Last administered on 03/11/18 06:25; Admin Dose 450 MG; Start 03/06/18 at 15:00 Acetaminophen (Tylenol Tab) 650 mg Q6H PRN PO MILD PAIN(1-3)OR ELEVATED TEMP Last administered on 03/06/18at 21:13; Admin Dose 650 MG; Start 03/06/18 at 21:00 Senna (Senokot) 2 tab BID PO Last administered on 03/10/18 21:28; Admin Dose 2 TAB; Start 03/07/18 at 21:00 Miscellaneous Information (*Rx Drug Level Order Reminder*) VANCO TROUGH 03/12 @ 1,400 ONCE ONCE XX ; Start 03/12/18 at 16:00; Stop 03/12/18 at 16:01 NIKI SCHREIBER NP Mar 11, 2018 14:52
[2018-03-11] MEDS: SODIUM HYPOCHLORITE (1/40) 1 APPLIC BTL IRR SCH (14:55)
--- NOTE | 2018-03-11 16:15 | NUR ---
SS NOTE: F/U SW ASSISTED ZONIA HOOD W/ MEETING PT AT BEDSIDE TO DISCUSS UPCOMING D/C BACK TO HOME. PT IS 77 YR OLD MALE APPEARED TO BE A&OX4 AND COPING APPROPRIATELY W/ADMISSION. PT STATED THAT HE HAS QUESTIONS/CONCERNS FOR DR FRIEND REGARDING MEDICATIONS AND FURTHER PLAN OF CARE. THIS LUMBER SORTER MACHINE FACILITATED PLAN FOR DR FRIEND TO MEET WITH PT AT BEDSIDE TO ADDRESS CONCERNS. PLAN REMAINS FOR PT TO D/C BACK TO HOME AND HIS S.O. POONAM MARIANO ([phone]) WILL PROVIDE TRANSPORTATION.SW REMAINS AVAILABLE FOR F/U NEEDED.
--- NOTE | 2018-03-11 17:51 | NUR ---
END OF SHIFT NOTE : PATIENT RESTING COMFORTABLE IN BED WITH RIGHT LEG ELEVATED ON PILLOWS. RIGHT WOUND CARE ADMINSTERED, PATIENT TOLERATED WELL.DISCHARGE CANCELLED TODAY BY DR FRIEND. DR FRIEND, [facility] AND [employer] KAHLIL SPOKE AT LENGTH AT BEDSIDE.T WILL CONTINUE WITH IV ANTIBIOTICS. Addendum: 03/11/18 at 1830 by DELISA SRINIVASAN RN RECEIVED CALL FROM DR RONNA MD STATED HE SPOKE WITH DR GARCIA TO KEEP PATIENT NPO AFTER BREAKFAST FOR ANGIOGRAM, MD WILL TRY TO ADD PATIENT ON FOR PROCEDURE IN AM.
[2018-03-11 19:45] VITALS: BP 98/76; PULSE 72; RESP 16
[2018-03-11] MEDS: SOD CHLORIDE 0.45% 1,000 ML IV SCH (20:19)
[2018-03-11] MEDS: INSULIN GLARGINE [LANTus] (100 UNITS/ML) SYG SC SCH (20:49)
--- NOTE | 2018-03-12 01:16 | NUR ---
SPOKE TO YAMIL/CT SCAN. PATIENT SCHEDULED FOR ANGIOGRAM OF RLE BETWEEN [phone] TODAY, PATIENT AWARE, CONSENT PREPARED AND WITNESSED PATIENT SIGNING IT.
[2018-03-12] MEDS: ACCU-CHEK XX SCH (02:00)
[2018-03-12 02:20] VITALS: BP 122/63; RESP 16
[2018-03-12] MEDS ORDERED: IOHEXOL 300MG/ML 150 ML BTL ONE (06:00)
[2018-03-12] MEDS ORDERED: SOD CHLORIDE 0.9% 100 ML ONE (06:00)
[2018-03-12] MEDS: VANCOMYCIN 1 GM 250 ML IVPB SCH ×2 (06:35→15:33)
--- NOTE | 2018-03-12 07:29 | NUR ---
PATIENT FOR DISCHARGE PLANNING. PATIENT'S ANGIOGRAM WAS DONE. CONTINUE POC.
[2018-03-12 07:47] VITALS: BP 120/58; PULSE 89; RESP 18
[2018-03-12] MEDS: INSULIN ASPART [NOVOLOG] 3 ML PEN SC SCH ×3 (08:00→18:00)
[2018-03-12] MEDS: SOD CHLORIDE 0.45% 1,000 ML IV SCH (08:50)
--- NOTE | 2018-03-12 09:38 | NUR ---
PT NOTE Approached pt's room. Pt was alert w/attending YOLIE Boston present in room. Pt stated, "I am having breakfast just now, so I can do therapy after. I can't do it right now because I want to eat first before my food gets cold." Therefore PT services aren't able to be provided at this time. Communicated w/YOLIE Boston and is aware of this therapists attempt. Will f/u later if time permits.
[2018-03-12] MEDS: SENNA TAB PO SCH (09:41)
[2018-03-12] MEDS: SODIUM HYPOCHLORITE (1/40) 1 APPLIC BTL IRR SCH (09:42)
--- NOTE | 2018-03-12 09:45 | NUR ---
SS NOTE: F/U SW F/U WITH PHYSICAL THERAPY DEPARTMENT REGARDING ASSESSMENT FOR POSSIBLE D/C TO HOME. PT'S S.O. POONAM EXPRESSED CONCERN THAT SHE COULD NOT ASSIST THE PT WITH GETTING IN/OUT OF VEHICLE OR WALKING FROM VEHICLE TO HIS HOME IN [place]. THIS DESK OPERATOR REQUESTED THAT PHYSICAL THERAPIST RE-EVALUATE PT REGARDING THESE EXPRESSED CONCERNS FROM PT'S S.O. TO CONFIRM POSSIBILITY OF SNF PLACEMENT. PT'S S.O. ZACHARIAH STATED THAT SHE SPOKE WITH [facility] AND THEY WOULD BE WILLING TO ACCEPT PT FOR ADDITIONAL REHAB. ROHINI UPDATED CM FAWAD HOOD WHO WITH F/U WITH SNF FOR POSSIBLE D/C PLACEMENT. SW REMAINS AVAILABLE FOR F/U NEEDED.
--- NOTE | 2018-03-12 10:00 | NUR ---
ZONIA NOTE: Per pt and pt twyla montano, SNF packet faxed to [facility] (P:[phone], F:[phone]). Confirmation received. Clement Hood RN CM [phone] Addendum: 03/12/18 at 1204 by FAWAD HOOD CM Received call from Michelle at [facility] who states that they are accepting the pt. Pt to go to room [facility]. Transportation arranged via [facility] (P:[phone]). Trip#[id number]. YOLIE Boston aware. Addendum: 03/12/18 at 1215 by FAWAD HOOD CM Pt informed of transfer and agreeable. [facility] placed on will-call.
--- NOTE | 2018-03-12 10:05 | NUR ---
PT NOTE Therapy day number 6 Subjective Denies pain Pain Scale NUMERIC Pain Intensity 0 (0-10) Patient Stated Goal for Pain Relief 0 (0-10) Pain Level Comment DENIES PAIN Transfer Training Start Time 10:05 Supine to Sit Independent Transfer Sit to Stand Ability Supervised Bed Mobility Sit to Supine Independent Additional Mobility Comments STS w/no AD pushing off bed w/BUE to FWW Transfer Training End Time 10:20 Total Transfer Training Time 15 min (8-127) Patient uses wheelchair Not Applicable Gait Training Start Time 10:20 Gait Assist Levels Supervised Assistive Devices Front Wheel Walker Ambulation Distance 220 feet Additional Gait Comments reciprocal pattern, steady gait, no LOB/buckling Gait Training End Time 10:44 Total Gait Training Treatment Time 24 min (8-127) Weight Bearing Assessment Label Bilat Lower Extremity Weight Bearing Status Weight Bearing as Vane Stair Climbing Ability Supervised Number of Stairs 1 Stairs Additional Stairs Assist Comments platform step using FWW x 2 w/VCs for sequence, fair demonstration Static Sitting Balance Good Dynamic Sitting Balance Good Standing Static Balance Good Dynamic Standing Balance Fair plus Additional Balance Assessments Comments FWW Safety Judgement Good Activity Tolerance Good Equipment Present A pump IV pump Post Treatment Pain Intensity 0 0-10 Variance Documentation SEE BELOW AND PT NOTE Total Treament Time 39 min (8-127) Total Minutes 39 Total Units 3 PT Technical Record Comment PT NOTE S: Pt stated, "I'm fine right now. No pain since I have my leg prompt up on the pillow." Agreeable for PT and cleared per YOLIE Boston. O: Received pt in semi-fowlers, alert. Bed mobility w/HOB elevated Independent. Applied gait belt at EOB. STS w/no AD pushing off bed w/BUE to FWW Supervised. Gait training performed w/FWW 220' Supervised/Remberto. Noted reciprocal pattern, steady gait, and no LOB/buckling. Pt required reminder VCs to not lift AD when making turns. Pt verbalized and demonstrated w/fair return. Stair training performed on platform step using FWW x 2, Supervised w/fair demonstration. Practiced w/pt transfers from bed>chair assimilating a car transfer, fair demonstration. Assisted pt BTB. Left pt in comfort position, call light/phone within reach, bed alarmed, and all needs met. YOLIE Boston informed of pt's status. A: Good tolerance to tx. Pt showed no signs of distress or SOB during or after tx. No c/o dizziness or nausea throughout tx. Bed mobility and gait distance improved compared to previous tx. Pt demonstrated improvement w/overall mobility. P: Continue POC and progress as tolerated. Addendum: 03/12/18 at 1647 by BEBA CASEY PT Pt has met physical therapy goals, able to ambulate 220' with Remberto/spv and negotiate one step. No further skilled PT warranted at this time. Pt cleared to ambulate with nursing staff using FWW.
--- NOTE | 2018-03-12 11:23 | CONS ---
Date/Time of Note Date/Time of Note DATE: 03/12/18 TIME: 11:21 Assessment/Plan Assessment/Plan Hospital Course No acute changes, no fevers Microbiology: Right lower extremity wound culture grew MRSA and strep pyogenous Antimicrobials: Vancomycin Physical examination: This is a well-nourished well-developed elderly man who is alert in no distress. Head atraumatic normocephalic sclera nonicteric. Neck is supple chest rise symmetrical breath sounds clear. Heart: S1-S2 abdomen soft bowel sounds present extremities with right lower extremity Pito wrap Assessment: 1. Right diabetic foot ulceration with cellulitis==> no OM 2. Diabetes 3. Peripheral arterial disease Plan: Stable, continue abx, wound care per podiatry, s/p CT angio==> will f/u vascular rec-s Result Diagram: 03/12/18 0648 03/12/18 0648 Results 24hrs Laboratory Tests Test 03/11/18 12:33 03/11/18 17:37 03/11/18 20:18 03/12/18 06:48 Bedside Glucose 90 82 109 White Blood Count 6.5 Red Blood Count 3.97 L Hemoglobin 10.4 L Hematocrit 34.1 L Mean Corpuscular Volume 85.9 Mean Corpuscular 26.2 L Hemoglobin Mean Corpuscular 30.5 L Hemoglobin Concent Red Cell Distribution 17.7 H Width Platelet Count 219 Mean Platelet Volume 12.1 H Immature Granulocytes % 0.900 H Neutrophils % 75.4 Lymphocytes % 13.1 L Monocytes % 8.8 Eosinophils % 1.2 Basophils % 0.6 Nucleated Red Blood 0.0 Cells % Immature Granulocytes # 0.060 H Neutrophils # 4.9 Lymphocytes # 0.9 Monocytes # 0.6 Eosinophils # 0.1 Basophils # 0.0 Nucleated Red Blood 0.0 Cells # Erythrocyte 40.0 H Sedimentation Rate Sodium Level 140 Potassium Level 3.9 Chloride Level 108 Carbon Dioxide Level 23 Anion Gap 9 Blood Urea Nitrogen 7 Creatinine 0.65 Est Glomerular Filtrat Rate mL/min Glucose Level 100 Calcium Level 8.5 C-Reactive Protein 5.2 H Test 03/12/18 08:27 Bedside Glucose 97 Consultation Date/Type/Reason Admit Date/Time Mar 03, 2018 at 14:58 Initial Consult Date Type of Consult ID Exam/Review of Systems Vital Signs Vitals Vital Signs Date Temp Pulse Resp B/P (MAP) Pulse Ox O2 O2 Flow FiO2 Time Delivery Rate 03/12/18 98.1 89 18 120/58 95 07:47 (78) 03/09/18 Room Air 14:00 Intake and Output 03/11/18 03/11/18 03/12/18 1515:00 23:00 07:00 IntakeIntake Total 320 ml 610 ml 786 ml OutputOutput Total 250 ml 200 ml BalanceBalance 70 ml 410 ml 786 ml Medications Medications Current Medications IV Flush (NS 3 ml) 3 ml PER PROTOCOL IV ; Start 03/03/18 at 16:00 Ondansetron HCl (Zofran Inj) 4 mg Q6H PRN IV NAUSEA AND/OR VOMITING; Start 03/03/18 at 16:00 Ibuprofen (Motrin) 600 mg Q6H PRN PO PAIN; Start 03/03/18 at 16:00 Acetaminophen/ Hydrocodone Bitart ([place] (5/325)) 1 tab Q6H PRN PO BREAKTHROUGH PAIN Last administered on 03/05/18at 07:16; Admin Dose 1 TAB; Start 03/03/18 at 16:00 Vancomycin HCl (Vanco Iv Per Pharmacy) VANCOMYCIN PER PHARMACY PER PROTOCOL XX ; Start 03/03/18 at 16:00 Diagnostic Test (Pha) (Accu-Chek) 1 ea 02 XX ; Start 03/04/18 at 02:00 Insulin Aspart (Novolog Insulin Pen) NOVOLOG *MODERATE* ALGORITHM WITH MEALS BEDTIME SC Last administered on 03/08/18at 18:16; Admin Dose 2 UNIT; Start 03/03/18 at 21:00 Miscellaneous Information 1 ea NOTE XX ; Start 03/03/18 at 16:30 Glucose (Glutose) 15 gm Q15M PRN PO DECREASED GLUCOSE; Start 03/03/18 at 16:30 Glucose (Glutose) 22.5 gm Q15M PRN PO DECREASED GLUCOSE; Start 03/03/18 at 16:30 Dextrose (D50w Syringe) 25 ml Q15M PRN IV DECREASED GLUCOSE; Start 03/03/18 at 16:30 Dextrose (D50w Syringe) 50 ml Q15M PRN IV DECREASED GLUCOSE; Start 03/03/18 at 16:30 Glucagon (Glucagen) 1 mg Q15M PRN IM DECREASED GLUCOSE; Start 03/03/18 at 16:30 Glucose (Glutose) 15 gm Q15M PRN BUCCAL DECREASED GLUCOSE; Start 03/03/18 at 16:30 Sodium Hypochlorite (Dakin'S (Dilute )) 1 applic DAILY IRR Last administered on 03/12/18 09:42; Admin Dose 1 APPLIC; Start 03/04/18 at 09:00 Vancomycin HCl 250 ml @ 125 mls/hr Q8H IVPB Last administered on 03/12/18 06:35; Admin Dose 125 MLS/HR; Start 03/05/18 at 07:00 Insulin Glargine (Lantus) 12 units DAILY@2000 SC Last administered on 03/11/18 20:49; Admin Dose 12 UNITS; Start 03/05/18 at 20:00 Acetaminophen (Tylenol Tab) 650 mg Q6H PRN PO MILD PAIN(1-3)OR ELEVATED TEMP Last administered on 03/06/18at 21:13; Admin Dose 650 MG; Start 03/06/18 at 21:00 Senna (Senokot) 2 tab BID PO Last administered on 03/12/18 09:41; Admin Dose 2 TAB; Start 03/07/18 at 21:00 Miscellaneous Information (*Rx Drug Level Order Reminder*) VANCO TROUGH 03/12 @ 1,400 ONCE ONCE XX ; Start 03/12/18 at 14:00; Stop 03/12/18 at 14:01 Sodium Chloride 1,000 ml @ 75 mls/hr [id number] IV Last administered on 03/11/18 20:19; Admin Dose 75 MLS/HR; Start 03/11/18 at 19:30; Stop 03/12/18 at 11:55 NIKI SCHREIBER NP Mar 12, 2018 11:23
--- NOTE | 2018-03-12 11:43 | DS ---
Date/Time of Note Date/Time of Note DATE: 03/12/18 TIME: 11:40 Discharge Summary Admission/Discharge Info Admit Date/Time Mar 03, 2018 at 14:58 Discharge Date/Time Discharge Diagnosis #Severe sepsis -secondary to RLE cellulitis- CT leg negative for deep edema or subQ gas- Duplex negative for DVT. - Wound culture growing MRSA and group A strep - Podiatry debrided on 03/03. Lower extremity arterial study however positive for peripheral vascular disease-as well as CT angios the lower extremities -improving overall with antibiotics #NIDDM -A1c equals 6.9. Sugars presently stable. #A fib, chronic -on home eliquis Patient Condition: Stable Procedures CT angio B/L LE: IMPRESSION: Widespread atherosclerotic changes without evidence of flow-limiting stenosis seen within the visualized right lower extremity to the level of the popliteal artery. Below this there is multifocal calcified atherosclerotic plaque with varying degrees of diminished flow within both the anterior and posterior tibial arteries, albeit with two-vessel runoff seen below the ankle, and the overall appearance of which is similar to prior. Diffuse right lower extremity soft tissue edema is again present, without evidence of loculated fluid collection or underlying osteomyelitis seen. Also partially imaged is multifocal left lower extremity atherosclerotic disease that is likewise most notable below the knee. Further evaluation by catheter angiography could be considered as clinically warranted. Hx of Present Illness Mr. Padilla is a pleasant 77 yo man with NIDDM who presents with RLE pain and swelling. Symptoms started Thursday morning (2 days [employer]) with subjective fever, headache, and R ankle pain and swelling. He does have two small ulcers on the dorsum of his foot but is not sure when these developed. He developed anorexia, nausea, and had a few episodes of retching but no vomiting. Spent most of Thursday sleeping. The next day symptoms progressively worsened. He took some old oxycodone which did not relieve the pain. He then came in to the ED. In the ED he was febrile to 102.3, tachy to 103, requiring 3L NC. WBC 12.1, lactate 3.8. Admit to med/surg for cellulitis with sepsis. Hospital Course So patient was admitted with sepsis and fevers. Seen by vascular surgery and podiatry teams during this hospital stay. He underwent a bedside debridement of the right lower extremity by podiatry team. He was also placed on broad- spectrum antibiotics for the cellulitis and sepsis. His wound culture from the area did grow positive MRSA and group A strep. Over the course of his hospital stay white blood cell count was normal, fever subsided. His sugars were stable with appropriate insulin regimen, A1c was found to be 6.9. He underwent CT angiogram to further evaluate his peripheral vascular disease in his lower extremities, results were noted and discussed with the vascular surgeon team. They will follow-up with the patient in the clinic in the next few days for further treatment options if needed. In the meantime patient improved with antibiotic treatment and a debridement as mentioned above. No fevers and white blood cell count stable on the day of discharge. Because he is still requiring some physical therapy work he will be discharged to intermediate facility today and in improved condition. See printed medical reconciliation sheet for full list of discharge medications. Home Meds Reported Medications Metformin Hcl* (Metformin Hcl* ER) 500 Mg Tab.sr.24h, 500 MG PO DAILY, #30 TAB 03/03/18 Apixaban* (Eliquis*) Unknown Strength Tablet, PO BID, TAB 03/03/18 Follow-up Plan Please take your medications as prescribed, see your doctor in clinic in the next few days. Also make sure you come back to [facility] 2 days for your angiogram, this will be performed by your vascular surgeon. Primary Care Provider Care Physician No Primary Time spent on discharge: > 30 minutes Pending Labs Laboratory Tests Test 03/11/18 12:33 03/11/18 17:37 03/11/18 20:18 03/12/18 06:48 Bedside 90 82 109 Glucose mg/dL (70-220) mg/dL (70-220) mg/dL (70-220) White Blood 6.5 Count 10^3/ul (4.8-1 0.8) Red Blood 3.97 Count 10^6/ul (4.70- 6.10) Hemoglobin 10.4 g/dl (14.0-18. 0) Hematocrit 34.1 % (42.0-52.0) Mean 85.9 Corpuscular fl (82.0-101.0 Volume ) Mean 26.2 Corpuscular pg (29.0-33.0) Hemoglobin Mean 30.5 Corpuscular g/dl (32.0-37. Hemoglobin Conc 0) ent Red Cell 17.7 Distribution % (11.5-14.5) Width Platelet Count 219 10^3/UL (140-4 15) Mean Platelet 12.1 Volume fl (7.4-10.4) Immature 0.900 Granulocytes % % (0.001-0.429 ) Neutrophils % 75.4 % (39.0-77.0) Lymphocytes % 13.1 % (15.0-51.0) Monocytes % 8.8 % (0.0-11.0) Eosinophils % 1.2 % (0.0-7.0) Basophils % 0.6 % (0.0-2.0) Nucleated Red 0.0 Blood Cells % /100WBC (0.0-0 .0) Immature 0.060 Granulocytes # 10^3/ul (0.0-0 .031) Neutrophils # 4.9 10^3/ul (1.6-7 .5) Lymphocytes # 0.9 10^3/ul (0.8-2 .9) Monocytes # 0.6 10^3/ul (0.3-0 .9) Eosinophils # 0.1 10^3/ul (0.0-0 .5) Basophils # 0.0 10^3/ul (0.0-0 .1) Nucleated Red 0.0 Blood Cells # 10^3/ul (0.0-0 .0) Erythrocyte 40.0 Sedimentation mm/Hr (0-20) Rate Sodium Level 140 mmol/L (135-14 4) Potassium 3.9 Level mmol/L (3.5-5. 1) Chloride Level 108 mmol/L (97-110 ) Carbon Dioxide 23 Level mmol/L (21-31) Anion Gap 9 (5-13) Blood Urea 7 mg/dl (7-20) Nitrogen Creatinine 0.65 mg/dl (0.61-1. 24) Est Glomerular mL/min (>60) Filtrat Rate mL/min Glucose Level 100 mg/dl (70-220) Calcium Level 8.5 mg/dl (8.4-10. 2) C-Reactive 5.2 Protein mg/dl (0.0-0.9 ) Test 03/12/18 08:27 Bedside 97 Glucose mg/dL (70-220) JUDITH FRIEND Mar 12, 2018 11:43
[2018-03-12 14:25] VITALS: BP 123/70; PULSE 120; RESP 20
--- NOTE | 2018-03-12 19:01 | NUR ---
No acute distress during the day. VS stable. Patient been discharged to SNF for IV vancomycin infusions Patient been taken by ambulance. Discharge information given to patient.Dentures, glasses, wilder , clothes returned to patient.
== END 2018-03-12 18:50 | DRG 854 ==
LOC: E/R 13:21 → 2NE 14:58 → CANRESERV 15:27
PROVIDERS: ADMIT Internal Medicine; ATTEND Hospitalist
PROC: 0JBN0ZZ Excision of Right Lower Leg Subcutaneous Tissue and Fascia, Open Approach (ICD-10-PCS; principal; 2018-03-03)
DX: A41.9 Sepsis, unspecified organism (principal); L03.115 Cellulitis of right lower limb; R65.20 Severe sepsis without septic shock; E11.621 Type 2 diabetes mellitus with foot ulcer; E11.42 Type 2 diabetes mellitus with diabetic polyneuropathy; I48.2 Chronic atrial fibrillation; B35.1 Tinea unguium; B95.62 Methicillin resistant Staphylococcus aureus infection as the cause of diseases classified elsewhere; B95.0 Streptococcus, group A, as the cause of diseases classified elsewhere; L84 Corns and callosities; E11.51 Type 2 diabetes mellitus with diabetic peripheral angiopathy without gangrene; Z79.84 Long term (current) use of oral hypoglycemic drugs
CPT/HCPCS: 36415; 71045; 73630; 73700; 73706; 80048; 80053; 80061; 80202; 81001; 81003; 82962; 83036; 83605; 83690; 83735; 84100; 84443; 84484; 85025; 85610; 85651; 85730; 86140; 87040; 87070; 87086; 93005; 93922; 93971; 96374; 97110; 97116; 97161; 97530; J0696; J1650; J1815; J3370; J7030; J7040; Q9967